=== PATIENT | female | born 2000 | race Caucasian/White ===

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

== ENCOUNTER 2022-01-22 13:21 | Emergency (ER) | payer SELFPAY ==
[2022-01-22 13:25] VITALS: BP 124/74; PULSE 107; RESP 16; TEMP 37.1; O2SAT 99; BMI 24.4
--- NOTE | 2022-01-22 13:39 | HMH.EDGENADL ---
ED Disposition Clinical Impression: Miscarriage Disposition: Home, Self-Care Condition on Discharge: Good Additional Instructions: Follow-up with primary care provider, call for appointment. Referrals: Sherman Beck MD [Primary Care Provider] - - Critical Care Critical Care Time: No Attestation: On 01/22/22, the high probability of a clinically significant, sudden or life threatening deterioration of the following system(s) required my full and direct attention, intervention and personal management. The time I documented below is in addition to time spent performing reported procedures but includes the following listed in this critical care notation. Medical Decision Making - Nadir Inquiry Pt receiving controlled substance: No Vital Signs: 01/22/22 13:25 Temperature 98.8 F Temperature Source Oral Pulse Rate [Right Radial] 107 H Respiratory Rate 16 Blood Pressure [Right Arm] 124/74 Blood Pressure Mean [Right Arm] 90 Blood Pressure Source [Right Arm] Automatic Cuff Blood Pressure Position [Right Arm] Sitting 02 Sat by Pulse Oximetry 99 Oxygen Delivery Method Room Air - Lab Data Lab Results 01/22/22 13:30: Urine HCG, Qual Negative Medical Decision Narrative: Suspect that she had a miscarriage of a very early . General Adult HPI - General Chief complaint: Vaginal Bleeding Stated complaint: possible miscarriage Time Seen by Provider: 01/22/22 13:40 Mode of Arrival: Ambulatory Limitations: No Limitations Description of Symptoms (Recalled from ER Triage Doc. by RN): Pt reports concern for miscarriage. Pt reports on 01/10/22 she took 4 home tests- all were positive. Pt reports 2 days ago she had brown/black color vaginal spotting. Pt reports the spotting has now stopped. Pt denies any vaginal/pelvic or abd pain. - History of Present Illness HPI narrative: States that she had some vaginal spotting from January 07 through January 10. She took 4 home tests on January 10 and all were positive. She says that the spotting resolved and has not returned since January 10. She says that she took another test today and says that it was negative, therefore she is concerned that she might have had a miscarriage. No prior pregnancies. No pain. No current bleeding. Last normal menstrual period was December 08. - Related Data Previous Rx's Medication Instructions Recorded Brompheniramine/Pseudoephed/Dm 5 - 10 ml PO Q46H PRN #150 ml 12/19/20 [Bromfed Dm Cough Syrup] Fluticasone Propionate [Flonase 1 spr NS DAILY #1 bottle 12/19/20 50mcg nasal spray 16gm] cephALEXin [cephALEXin 500mg 500 mg PO BID 10 Days #20 cap 12/19/20 capsule*] Allergies Allergy/AdvReac Type Severity Reaction Status Date / Time No Known Allergies Allergy Verified 05/09/19 11:14 [facility] History - Hepatitis A Screen Attestation statement:: This patient has been screened for Hepatitis A risk factors. I have reviewed the patient's past medical history: Yes Medical History: Reports:: Depression Denies:: Cancer, Diabetes Mellitus Type 1, Diabetes Mellitus Type 2, MRSA Other Surgeries: Yes: No Previous Surgery Amputation: No Fractures: No - Social History Smoking Status: Never smoker Alcohol Intake: never Substance Use Type: denies use Occupational Status: student - Psychiatric History Pschychiatric History:: Reports:: Depression, Psychiatric Treatment Family Hx:: No significant family history Comment: Family history is positive for depression grandmother from heroin over dose. ROS Obtained: Yes Systems reviewed as appropriate & no additional complaints - Gastrointestinal Gastrointestingal: Denies: abdominal pain - Genitourinary Female Genitourinary: Reports abnormal vaginal bleeding Physical Exam - General General appearance: alert, in no apparent distress - Head Head exam: atraumatic, normocephalic - Eye Eye exam: Present: normal appearance, EOMI - ENT ENT
[2022-01-22 13:51] LABS: Urine Pregnancy, HCG Qual. Negative (Negative)
[2022-01-22 14:05] VITALS: BP 124/74; PULSE 107; RESP 16; TEMP 37.1; O2SAT 99
== END 2022-01-22 14:06 | disposition home or self-care (01) ==
PROVIDERS: Emergency Provider Emergency Medicine; PCP Emergency Medicine
DX: O03.9 Complete or unspecified spontaneous abortion without complication (principal)
CPT/HCPCS: 81025; 99283

== ENCOUNTER 2022-04-28 15:49 | Emergency (ER) | payer SELFPAY ==
[2022-04-28 15:59] VITALS: BP 128/73; PULSE 87; RESP 16; TEMP 36.8; O2SAT 98; BMI 26.4
--- NOTE | 2022-04-28 16:05 | PC.NURSE ---
pt in triage room until room is available in ER, pt verbalized understanding.
[2022-04-28 16:17] LABS: Appearance,Urine CLOUDY (Clear); Blood, Urine 3+ (Negative); Color,Urine ORANGE (Yellow); Glucose,Urine (UA) Negative (Negative); Ketones,Urine Negative (Negative); Leukocyte Esterase,Urine Negative (Negative); Microscopic, Urine URINE MICROSCOPIC (MICROSCOPIC); Nitrate,Urine Negative (Negative); PH,Urine 5.5 (5.0-8.5); Protein,Urine TRACE (Negative); Specific Gravity, Urine >= 1.030 (1.005-1.030); Urobilinogen,Urine 0.2 EU/dl (0.2)
[2022-04-28 16:21] LABS: Urine Pregnancy, HCG Qual. Positive (Negative)
[2022-04-28 16:46] LABS: Bilirubin,Urine 1+ (Negative)
[2022-04-28 16:47] LABS: Bacteria,Urine Trace /lpf; RBC,Urine TNTC #/hpf (0-3); WBC,Urine Occasional #/hpf (0-3)
--- NOTE | 2022-04-28 16:55 | PC.NURSE ---
contacted lab to draw blood on pt.
[2022-04-28 17:10] LABS: Basophils # 0.1 K/mm3 (0-0.2); Basophils % 0.8 % (0.1-2.0); Eosinophils # 0.1 K/mm3 (0.0-0.4); Eosinophils % 1.6 % (0.1-12.0); Hematocrit 39.6 % (37.0-47.0); Hemoglobin 12.7 g/dL (12.2-16.2); Lymphocytes # 1.9 K/mm3 (0.7-4.5); Lymphocytes % 28.1 % (10-50); Mean Corpuscular HGB Conc 32.1 g/dL (31.8-35.4); Mean Corpuscular Hemoglobin 31.8 pg (27.0-31.2); Mean Corpuscular Volume 99.2 fl (81-99); Mean Platelet Volume 7.8 fl (7.4-10.4); Monocytes # 0.4 K/mm3 (0.1-1.0); Monocytes % 5.9 % (1.7-9.3); Neutrophils # 4.3 K/mm3 (1.8-7.8); Neutrophils % 63.5 % (37.0-80.0); Platelet Count 372 K/mm3 (142-424); Red Blood Count 3.99 M/mm3 (4.20-5.40); Red Cell Distribution Width 12.5 % (11.5-17.5); White Blood Count 6.8 K/mm3 (4.5-13.0)
--- NOTE | 2022-04-28 17:27 | US_ITS ---
PROCEDURE INFORMATION: Exam: US , Transvaginal Exam date and time: 04/28/2022 5:47 PM Age: 21 years old Clinical indication: Lmp or gestational age (in weeks): 6 w 3 d; Antepartum complications; Bleeding; ; Patient HX: Hcg quant is 659; Additional info: Vaginal bleeding, early TECHNIQUE: Imaging protocol: Real-time transvaginal obstetrical ultrasound of the maternal pelvis with image documentation. Transvaginal imaging was used for better evaluation of the fetus, adnexa, and/or cervix. COMPARISON: No relevant prior studies available. FINDINGS: Gestation: No evidence for an intrauterine gestational sac. No adnexal masses. MATERNAL: Uterus: The uterus measures 7.1 x 3.1 x 3.3 cm. The endometrium is normal, measuring approximately 6.9 mm. No myometrial masses. Right ovary/adnexa: The right ovary appears normal, measuring 2.8 x 2.4 x 2.0 cm. No adnexal masses. No free fluid. Left ovary/adnexa: The left ovary appears normal, measuring 2.2 x 1.8 x 1.3 cm. Vasculature: Duplex assessment demonstrates normal flow in both ovaries. IMPRESSION: 1. No evidence for an intrauterine gestational sac. 2. Normal appearance to the uterus and ovaries. Recommend correlation with serial beta HCG levels.
--- NOTE | 2022-04-28 17:29 | PC.NURSE ---
ER MD gave verbal order for transvaginal ultrasound. updated pt on POC at this time. radiology notified of ultrasound order.
[2022-04-28 17:33] VITALS: BP 113/72; PULSE 78; RESP 16
--- NOTE | 2022-04-28 17:35 | PC.NURSE ---
pt to restroom at this time
[2022-04-28 17:39] LABS: HCG,Quantitative 659 mIU/ml (0-5.42)
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
[2022-04-28 19:21] VITALS: BP 121/76; PULSE 79; RESP 18; TEMP 36.8; O2SAT 99
== END 2022-04-28 19:23 | disposition home or self-care (01) ==
PROVIDERS: Emergency Provider Emergency Medicine
DX: O20.9 Hemorrhage in early pregnancy, unspecified (principal); Z3A.00 Weeks of gestation of pregnancy not specified
CPT/HCPCS: 36415; 76817; 81001; 81025; 84702; 85025; 86900; 86901; 99284

== ENCOUNTER → 2022-05-01 11:31 | Outpatient (CLI) | payer SELFPAY ==
[2022-05-01 13:05] LABS: HCG,Quantitative 75 mIU/ml (0-5.42)
== END ==
PROVIDERS: Visit Provider Emergency Medicine
DX: O20.9 Hemorrhage in early pregnancy, unspecified (principal)
CPT/HCPCS: 36415; 84702

== ENCOUNTER 2022-08-09 12:57 | Emergency (ER) | payer OTHER, SELFPAY ==
[2022-08-09 12:59] VITALS: BP 132/72; PULSE 118; RESP 18; TEMP 37.1; O2SAT 98; BMI 27.3
--- NOTE | 2022-08-09 13:14 | PC.NURSE ---
lab contacted to draw blood on pt.
--- NOTE | 2022-08-09 13:27 | PC.NURSE ---
Phlebotomy is at [facility]
[2022-08-09 13:56] LABS: HCG Qualitative, Serum Positive (Negative)
[2022-08-09 14:09] LABS: HCG,Quantitative 1278 mIU/ml (0-5.42)
[2022-08-09 14:50] VITALS: BP 100/63; PULSE 73; RESP 16; TEMP 37.1; O2SAT 98
--- NOTE | 2022-08-09 14:50 | HMH.EDGENADL ---
Discharge Plan Disposition Patient Disposition: Home, Self-Care Condition: Good Prescriptions Prescriptions: No Action cephalexin 500 MG capsule 500 mg PO BID 10 Days Qty: 20 0RF etbzmtbbpowxwtx-vbamteigr-UL 118 ML syrup 5 - 10 ml PO Q46H PRN (Reason: Cough) Qty: 150 0RF fluticasone propionate 120 SPR/BOT bottle 1 spr NS DAILY Qty: 1 0RF Rx Instructions: each nostril daily Referrals Follow up/Referrals: Provider,Referral, MD [Primary Care Provider] - See instructions Activity Restrictions/Add. Instructions Additional Instructions/Restrictions: Please follow-up with primary care physician within the next 1 to 2 days, you have been provided a list of primary care physicians please call today to set up appointment. Your hCG level during ED admission is 1200 will need repeat labs to continue to trend. Please return to the emergency department for any vaginal bleeding, abdominal pain or any other concerns. Clinical Impressions Clinical Impression: Print Language Print Language: Upper Sorbian Discharge ED Provider: Saba Salomon Adult HPI General Chief complaint: Recheck/Abnormal Lab/Rx Stated complaint: possibly , make sure ok Time Seen by Provider: 08/09/22 12:57 Mode of Arrival: Ambulatory Source of Information: Patient Limitations: No Limitations Description of Symptoms (Recalled from ER Triage Doc. by RN): Pt requesting confirmation. Reports positive test on of last week, pt reports LMP jul 06. Pt denies any vaginal bleeding or cramping. History of Present Illness HPI narrative: Christina is a 22 yo female presenting to the ED for confirmation. Patient reports she had miscarriage a few weeks prior but multiple negative tests following that. However on last week she had pos test and believes she may be . Last LMP Jul 06. She denies any vaginal bleeding, discharge. No abdominal cramping. No N/V. No feveres or other infectious symptoms. complaint: confirmation Related Data Previous Rx's Medication Instructions Recorded pzmydjnkcixbofi-xdocvmsrwvimtel-AP 5 - 10 ml PO Q46H PRN Cough #150 mL 12/19/20 2 mg-30 mg-10 mg/5 mL oral syrup cephalexin 500 mg capsule 500 mg PO BID 10 days #20 caps 12/19/20 fluticasone propionate 50 1 spr NS DAILY ##1 12/19/20 mcg/actuation nasal spray,suspension Allergies Allergy/AdvReac Type Severity Reaction Status Date / Time No Known Allergies Allergy Verified 05/09/19 11:14 [facility] Disclaimer: The information contained in this section may have been updated after the patient was seen, as this information can be updated by other users. Social History Smoking Status: Never smoker alcohol intake: never substance use type: denies use current occupational status: student Travel in the last 8 weeks: None number of children: 0 ROS Obtained: Yes All systems reviewed & no additional complaints except as documented Physical Exam General General appearance: alert and in no apparent distress Head Head exam: atraumatic and normal inspection Eye Eye exam: Present normal appearance and EOMI ENT ENT exam: Present normal exam, normal oropharynx and mucous membranes moist Neck Neck exam: Present normal inspection and full ROM Chest Chest inspection: Present normal inspection and symmetric chest wall rise Respiratory Respiratory exam: Present normal lung sounds bilaterally Cardiovascular Cardiovascular exam: Present regular rate and normal heart sounds Abdominal Exam Abdominal exam: Present soft and normal bowel sounds Extremities Exam Extremities exam: Present normal inspection and full ROM Back Exam Back exam: Present normal inspection and full ROM Neurological Exam Neurological exam: Present alert and oriented X3 Psychiatric Psychiatric exam: Present normal affect Skin Skin exam: Presen
== END 2022-08-09 14:50 | disposition home or self-care (01) ==
PROVIDERS: Emergency Provider Student in an Organized Health Care Education/Training Program
DX: Z32.01 Encounter for pregnancy test, result positive
CPT/HCPCS: 84702; 84703; 99282

== ENCOUNTER 2022-08-11 17:30 | Emergency (ER) | payer OTHER, SELFPAY ==
--- NOTE | 2022-08-11 17:40 | PC.NURSE ---
pt deciding to leave without being seen. pt reports she was just wanting to check her hcg but states she will get it checked at her OB appointment on tuesday.
[2022-08-11 18:47] VITALS: BP 0/0; PULSE 0; RESP 0; TEMP -17.7; TEMP 0; O2SAT 0
== END 2022-08-11 19:10 | disposition left against medical advice (07) ==
LOC: ER 18:49
PROVIDERS: Emergency Provider Student in an Organized Health Care Education/Training Program
DX: Z53.21 Procedure and treatment not carried out due to patient leaving prior to being seen by health care provider (principal)

== ENCOUNTER 2022-08-28 23:26 | Emergency (ER) | payer OTHER, SELFPAY ==
[2022-08-28 23:43] VITALS: BMI 21.4
[2022-08-28 23:44] VITALS: BP 144/79; PULSE 87; RESP 18; TEMP 36.7; O2SAT 98; BMI 25.4
--- NOTE | 2022-08-28 23:45 | HMH.EDGENADL ---
Discharge Plan Disposition Patient Disposition: Home, Self-Care Condition: Good Prescriptions Prescriptions: New ondansetron 4 mg tablet,disintegrating 4 mg PO Q8H PRN (Reason: nausea and vomiting) 4 Days Qty: 10 0RF nitrofurantoin monohyd/m-cryst [Macrobid] 100 mg capsule 100 mg PO BID 5 Days Qty: 10 0RF Rx Instructions: must administer with a meal/food No Action cephalexin 500 MG capsule 500 mg PO BID 10 Days Qty: 20 0RF dyphjungqrozefv-fvpjlpqww-KA 118 ML syrup 5 - 10 ml PO Q46H PRN (Reason: Cough) Qty: 150 0RF fluticasone propionate 120 SPR/BOT bottle 1 spr NS DAILY Qty: 1 0RF Rx Instructions: each nostril daily Referrals Follow up/Referrals: Provider,Referral, MD [Primary Care Provider] - See instructions Activity Restrictions/Add. Instructions Additional Instructions/Restrictions: Medication as directed. Follow-up PCP in 1 to 2 days. Return to ER if not tolerating p.o. hydration Clinical Impressions Clinical Impression: Asymptomatic bacteriuria during Qualifiers: Weeks of gestation: less than 8 weeks Qualified Code(s): Z3A.01 - Less than 8 weeks gestation of Instructions Patient Instructions: DI for Diarrhea and Traveler's Diarrhea -- Adult, DI for Diarrhea and Traveler's Diarrhea -- Child, DI for Nausea -- Adult, DI for Nausea -- Child Discharge ED Provider: Dell Shen General Adult HPI General Chief complaint: Nausea/Vomiting/Diarrhea Stated complaint: vomiting, Dont know how far along she is Time Seen by Provider: 08/28/22 23:41 Mode of Arrival: Ambulatory Source of Information: Patient Limitations: No Limitations History of Present Illness HPI narrative: 22yo F presents to the emergency department for confirmation and nausea and vomiting. Reports she is a G2, P0. First miscarriage was about 5 weeks. Has not seen a PCP. Reports her nausea and vomiting has been ongoing for 5 days. Has not sought care until this time. Denies fever. Related Data Previous Rx's Medication Instructions Recorded bjfgojqzctzzepm-diuoeynnmtfzqxw-PW 5 - 10 ml PO Q46H PRN Cough #150 mL 12/19/20 2 mg-30 mg-10 mg/5 mL oral syrup cephalexin 500 mg capsule 500 mg PO BID 10 days #20 caps 12/19/20 fluticasone propionate 50 1 spr NS DAILY ##1 12/19/20 mcg/actuation nasal spray,suspension nitrofurantoin 100 mg PO BID 5 days #10 caps 08/29/22 monohydrate/macrocrystals 100 mg capsule (Macrobid) ondansetron 4 mg disintegrating 4 mg PO Q8H PRN nausea and 08/29/22 tablet vomiting 4 days #10 tabs Allergies Allergy/AdvReac Type Severity Reaction Status Date / Time No Known Allergies Allergy Verified 05/09/19 11:14 [facility] Disclaimer: The information contained in this section may have been updated after the patient was seen, as this information can be updated by other users. Social History Smoking Status: Current every day smoker alcohol intake: never substance use type: denies use current occupational status: student Travel in the last 8 weeks: None number of children: 0 ROS Obtained: Yes Systems reviewed as appropriate & no additional complaints except as documented Physical Exam General General appearance: alert and in no apparent distress Head Head exam: atraumatic Eye Eye exam: Present normal appearance Chest Chest inspection: Present normal inspection and symmetric chest wall rise Respiratory Respiratory exam: Present normal lung sounds bilaterally; Absent accessory muscle use Cardiovascular Cardiovascular exam: Present regular rate (96), normal rhythm and normal heart sounds Abdominal Exam Abdominal exam: Present normal bowel sounds Neurological Exam Neurological exam: Present alert, oriented X3 and CN II-XII intact Psychiatric Psychiatric exam: Present normal affect Skin Skin exam: Present warm and dry Medical Decision Lissette
[2022-08-28 23:47] LABS: Appearance,Urine SL CLOUDY (Clear); Blood, Urine 2+ (Negative); Color,Urine YELLOW (Yellow); Glucose,Urine (UA) Negative (Negative); Ketones,Urine 2+ (Negative); Leukocyte Esterase,Urine Negative (Negative); Microscopic, Urine URINE MICROSCOPIC (MICROSCOPIC); Nitrate,Urine Negative (Negative); PH,Urine 5.5 (5.0-8.5); Protein,Urine 1+ (Negative); Specific Gravity, Urine >= 1.030 (1.005-1.030)
[2022-08-28 23:51] LABS: Bilirubin,Urine 2+ (Negative)
[2022-08-28 23:52] LABS: Urine Pregnancy, HCG Qual. Positive (Negative)
[2022-08-28 23:55] LABS: WBC,Urine Occasional #/hpf (0-3)
[2022-08-28 23:56] LABS: Bacteria,Urine Trace /lpf
[2022-08-29 00:43] VITALS: BP 130/78; PULSE 85; RESP 16; TEMP 36.6; O2SAT 99
== END 2022-08-29 00:48 | disposition home or self-care (01) ==
PROVIDERS: Emergency Provider Family Medicine
DX: O23.41 Unspecified infection of urinary tract in pregnancy, first trimester (principal); O21.9 Vomiting of pregnancy, unspecified; O99.611 Diseases of the digestive system complicating pregnancy, first trimester; O99.341 Other mental disorders complicating pregnancy, first trimester; F32.A Depression, unspecified; O99.331 Smoking (tobacco) complicating pregnancy, first trimester; F17.210 Nicotine dependence, cigarettes, uncomplicated; O26.899 Other specified pregnancy related conditions, unspecified trimester; M26.609 Unspecified temporomandibular joint disorder, unspecified side; O99.511 Diseases of the respiratory system complicating pregnancy, first trimester; R05.9 Cough, unspecified; Z79.51 Long term (current) use of inhaled steroids; Z79.899 Other long term (current) drug therapy; Z3A.01 Less than 8 weeks gestation of pregnancy
CPT/HCPCS: 81001; 81025; 99283

== ENCOUNTER → 2022-09-07 10:33 | Outpatient (CLI) | payer OTHER, SELFPAY ==
[2022-09-07 11:23] LABS: Basophils % 0.5 % (0.1-2.0); Eosinophils # 0.1 K/mm3 (0.0-0.4); Eosinophils % 0.8 % (0.1-12.0); Hemoglobin 12.3 g/dL (12.2-16.2); Lymphocytes # 1.9 K/mm3 (0.7-4.5); Lymphocytes % 22.5 % (10-50); Mean Corpuscular HGB Conc 32.4 g/dL (31.8-35.4); Mean Corpuscular Hemoglobin 31.6 pg (27.0-31.2); Mean Corpuscular Volume 97.5 fl (81-99); Mean Platelet Volume 7.9 fl (7.4-10.4); Monocytes # 0.3 K/mm3 (0.1-1.0); Monocytes % 4.1 % (1.7-9.3); Neutrophils # 5.9 K/mm3 (1.8-7.8); Neutrophils % 72.1 % (37.0-80.0); Platelet Count 293 K/mm3 (142-424); Red Cell Distribution Width 12.4 % (11.5-17.5); White Blood Count 8.2 K/mm3 (4.5-13.0)
[2022-09-08 13:33] LABS: Rapid Plasma Reagin Ab Titer Non Reactive (NonRea<1:1)
[2022-09-10 06:31] LABS: Neisseria gonorrhoeae, NAA Negative (Negative)
[2022-09-15 23:02] LABS: HIV Screen 4th Generation wRfx NON REACTIVE; Hepatitis B Surface Antigen NEGATIVE; Hepatitis C Antibody <0.1; Progesterone 16.3
== END ==
PROVIDERS: Visit Provider Obstetrics & Gynecology
DX: Z34.90 Encounter for supervision of normal pregnancy, unspecified, unspecified trimester (principal)
CPT/HCPCS: 36415; 84144; 85025; 86593; 86703; 86762; 86850; 87086; 87340; 87380; 87491; 87591; G0432

== ENCOUNTER → 2022-11-25 12:57 | Outpatient (CLI) | payer OTHER, SELFPAY ==
--- NOTE | 2022-11-25 13:06 | US_ITS ---
FINAL REPORT CLINICAL HISTORY: 20 week anatomy scan please use anatomy scan template FINDINGS: There is a single live intrauterine gestation. Presentation is breech. The cervix is closed and measures 2.0 cm. Placenta is posterior grade 1. movement is noted. Amniotic fluid is within normal limits. heart rate is 135 beats per minute. No gross anomaly is identified. MEASUREMENTS: ULTRASOUND AGE: 20 weeks 1 day. GESTATION AGE: 20 weeks 2 days. ESTIMATED WEIGHT: 327 g GROWTH PERCENTILE: 31 % BPD: 4.79 cm corresponding to 20 weeks 4 days. OFD: 4.68 cm corresponding to 20 weeks 2 days. HC: 16.69 cm corresponding to 19 weeks 3 days. AC: 15.07 cm corresponding to 20 weeks 3 days. FL: 3.15 cm corresponding to 19 weeks 6 days. CEREBELLUM: 2.01 cm corresponding to 20 weeks 4 days. HUMERUS: 3.09 cm corresponding to 20 weeks 2 days. HC/AC: 1.11 CI: 83% FL/BPD: 66% FL/AC: 21% IMPRESSION: Single living IUP with an ultrasound age of 20 weeks 1 day. Reviewed, Interpreted and Dictated by Ronal Palmer MD Transcribed by Echo Kenyon Authenticated and [facility]
== END ==
PROVIDERS: PCP Obstetrics & Gynecology; Visit Provider Obstetrics & Gynecology
DX: Z34.90 Encounter for supervision of normal pregnancy, unspecified, unspecified trimester (principal); Z3A.20 20 weeks gestation of pregnancy
CPT/HCPCS: 76811

== ENCOUNTER 2022-12-02 08:48 | Outpatient (CLI) | payer OTHER, SELFPAY ==
[2022-12-02 08:57] VITALS: BMI 23.0
[2022-12-02 09:04] VITALS: BP 119/73; PULSE 100; RESP 16; TEMP 36.9; O2SAT 100
[2022-12-02 09:08] LABS: Microscopic, Urine URINE MICROSCOPIC (MICROSCOPIC)
[2022-12-02 09:13] LABS: Appearance,Urine CLEAR (Clear); Bilirubin,Urine Negative (Negative); Blood, Urine Negative (Negative); Color,Urine YELLOW (Yellow); Glucose,Urine (UA) Negative (Negative); Ketones,Urine Negative (Negative); Leukocyte Esterase,Urine Negative (Negative); Nitrate,Urine Negative (Negative); Protein,Urine Negative (Negative); Specific Gravity, Urine <= 1.005 (1.005-1.030); Urobilinogen,Urine 0.2 EU/dl (0.2)
[2022-12-02 09:26] LABS: Amphetamine/Metha Screen,Urine Negative ng/ml (<1000)
[2022-12-02 09:27] LABS: Barbiturates Screen,Urine Negative ng/ml (<200); Benzodiazepines Screen,Urine Negative ng/ml (<200)
[2022-12-02 09:28] LABS: Cannabinoid Screen,Urine Positive ng/ml (<50)
[2022-12-02 09:29] LABS: Cocaine Screen,Urine Negative ng/ml (<300); Methadone Screen,Urine Negative ng/ml (<300)
[2022-12-02 09:30] LABS: Opiate Screen,Urine Negative ng/ml (<300); Phencyclidine Screen,Urine Negative ng/ml (<25); Squamous Epithelial Cell,Urine Occasional #/hpf (0-5)
[2022-12-02 09:54] VITALS: BMI 23.0
== END 2022-12-02 10:35 | disposition home or self-care (01) ==
LOC: OBOUT 08:49 → OB 08:50
PROVIDERS: Obstetrics & Gynecology; Visit Provider Obstetrics & Gynecology
DX: O26.892 Other specified pregnancy related conditions, second trimester (principal); Z3A.21 21 weeks gestation of pregnancy; R10.32 Left lower quadrant pain
CPT/HCPCS: 80305; 81001

== ENCOUNTER 2023-01-08 12:00 | Emergency (ER) | payer OTHER, SELFPAY ==
[2023-01-08 12:13] VITALS: BP 117/69; PULSE 111; RESP 16; TEMP 36.4; O2SAT 99; BMI 24.4
[2023-01-08 12:30] VITALS: PULSE 109; O2SAT 97
[2023-01-08 12:39] LABS: Basophils % 0.3 % (0.1-2.0); Eosinophils # 0.1 K/mm3 (0.0-0.4); Eosinophils % 1.2 % (0.1-12.0); Hematocrit 36.3 % (37.0-47.0); Hemoglobin 12.3 g/dL (12.2-16.2); Lymphocytes # 1.5 K/mm3 (0.7-4.5); Lymphocytes % 13.3 % (10-50); Mean Corpuscular HGB Conc 33.8 g/dL (31.8-35.4); Mean Corpuscular Hemoglobin 32.3 pg (27.0-31.2); Mean Corpuscular Volume 95.4 fl (81-99); Mean Platelet Volume 7.7 fl (7.4-10.4); Monocytes # 0.5 K/mm3 (0.1-1.0); Monocytes % 4.4 % (1.7-9.3); Neutrophils # 9.1 K/mm3 (1.8-7.8); Neutrophils % 80.8 % (37.0-80.0); Platelet Count 359 K/mm3 (142-424); Red Cell Distribution Width 12.1 % (11.5-17.5); White Blood Count 11.3 K/mm3 (4.5-13.0)
--- NOTE | 2023-01-08 12:41 | HMH.EDGENADL ---
Discharge Plan Disposition Patient Disposition: Home, Self-Care Condition: Good Prescriptions Prescriptions: No Action ondansetron 4 mg tablet,disintegrating 4 mg PO Q8H PRN (Reason: Nausea) Referrals Follow up/Referrals: Provider,Referral, [Primary Care Provider] - See instructions Activity Restrictions/Add. Instructions Additional Instructions/Restrictions: You were evaluated in the emergency department today for muscle cramps. Take Tylenol at home as needed for pain. Make sure that you orally hydrate. Follow-up with your primary care provider and OB. Return to the emergency department for new or worsening symptoms. Clinical Impressions Clinical Impression: Exercise-induced leg cramps Stand Alone Forms Stand Alone Forms: Work/School Release Instructions Patient Instructions: DI for Calf Muscle Strain, DI for Muscle Spasm Discharge ED Provider: Janis Melton General Adult HPI General Chief complaint: PAIN Stated complaint: leg cramps Time Seen by Provider: 01/08/23 12:19 Mode of Arrival: Ambulatory Source of Information: Patient and Significant Other Limitations: No Limitations Description of Symptoms (Recalled from ER Triage Doc. by RN): Presents via POV d/t consistent cramps to bilateral LE for the past couple of weeks. Increase in ambulation due to no vehicle. Occupation at [employer]. +24 wks preg. OB, Dr. Omalley. Denies complaints. History of Present Illness HPI narrative: This patient is a 22-year-old female who is estimated 24 weeks presenting to the emergency department for evaluation with concern for cramping in her bilateral legs. She states that this has been going on intermittently for approximately 2 weeks. She has been walking a lot more because she does not have a car. She states that she feels that she is staying hydrated and has been eating plenty. She denies any other concerns. No history of blood clots or clotting disorders. Related Data Home Medications Medication Instructions Recorded Confirmed ondansetron 4 mg disintegrating 4 mg PO Q8H PRN Nausea 01/08/23 01/08/23 tablet Allergies Allergy/AdvReac Type Severity Reaction Status Date / Time No Known Allergies Allergy Verified 12/30/22 13:10 [facility] Disclaimer: The information contained in this section may have been updated after the patient was seen, as this information can be updated by other users. Medical History Concussion without loss of consciousness Depression Overdose of trazodone Suicide attempt TMJ (sprain of temporomandibular joint) Family History Other Asthma Cancer Stroke Social History Smoking Status: Current every day smoker tobacco type: e-cigarettes alcohol intake: never substance use type: denies use current occupational status: unemployed Travel in the last 8 weeks: None number of children: 0 ROS Obtained: Yes All systems reviewed & no additional complaints except as documented 14 point review of systems obtained and negative except as mentioned in HPI. Physical Exam General General appearance: alert and in no apparent distress Head Head exam: atraumatic and normocephalic Eye Eye exam: Present normal appearance, PERRL and EOMI ENT ENT exam: Present normal exam and normal oropharynx Neck Neck exam: Present normal inspection and full ROM Chest Chest inspection: Present normal inspection and symmetric chest wall rise Respiratory Respiratory exam: Present normal lung sounds bilaterally; Absent respiratory distress or wheezes Cardiovascular Cardiovascular exam: Present regular rate and normal rhythm Abdominal Exam Abdominal exam: Present soft; Absent distention, tenderness or guarding Extremities Exam Extremities exam: Present normal inspection and full ROM; Absent tenderness or
[2023-01-08 12:43] LABS: Chloride 102 mmol/L (98-107)
[2023-01-08 12:44] LABS: Potassium 3.7 mmoL/L (3.5-5.1); Sodium 137 mmol/L (136-145)
[2023-01-08 12:46] LABS: Alanine Aminotransferase 17 U/L (12-78); Albumin Level 3.5 g/dl (3.5-5.0); Albumin/Globulin Ratio 1.3 (1.1-1.8); Alkaline Phosphatase 53 U/L (38-126); Anion Gap 13.7 mEq/L (5-15); Aspartate Amino Transferase 26 U/L (14-36); Bilirubin,Total 0.3 mg/dl (0.2-1.3); Blood Urea Nitrogen 5 mg/dl (7-17); Calcium 8.4 mg/dl (8.4-10.2); Carbon Dioxide 25 mmol/L (22.0-30.0); Creatine Kinase 38 U/L (30-135); Creatinine Clearance Estimated 201 mL/min (50-200); Estimated Glomerular Filt Rate 203 ml/min (>60); GFR (African American) 246 ML/MIN (>60); Globulin 2.7 g/dL (1.3-3.2); Glucose 89 mg/dl (74-100); Total Protein,Serum 6.2 g/dl (6.3-8.2)
[2023-01-08 12:47] LABS: Magnesium 1.6 mg/dl (1.6-2.3)
[2023-01-08 13:00] VITALS: PULSE 81; O2SAT 97
[2023-01-08 13:44] VITALS: BP 117/69; PULSE 87; RESP 17; TEMP 36.5; O2SAT 97
== END 2023-01-08 13:46 | disposition home or self-care (01) ==
PROVIDERS: Emergency Provider Emergency Medicine
DX: O26.892 Other specified pregnancy related conditions, second trimester (principal); R25.2 Cramp and spasm; F17.290 Nicotine dependence, other tobacco product, uncomplicated; Z3A.10 10 weeks gestation of pregnancy; O99.332 Smoking (tobacco) complicating pregnancy, second trimester
CPT/HCPCS: 80053; 82550; 83735; 85025; 96360; 99284; 99285

== ENCOUNTER 2023-01-10 16:10 | Emergency (ER) | payer OTHER, SELFPAY ==
[2023-01-10 16:45] VITALS: BP 103/70; PULSE 101; RESP 18; TEMP 36.8; O2SAT 100; BMI 25.4
[2023-01-10 17:09] LABS: UTC Strep Screen (Rapid) Negative (Negative)
--- NOTE | 2023-01-10 17:26 | EXP.UTC ---
Discharge Plan Disposition Patient Disposition: Home, Self-Care Condition: Good Prescriptions Prescriptions: New amoxicillin 500 mg capsule 500 mg PO BID 10 Days Qty: 20 0RF Referrals Follow up/Referrals: Provider,Referral, MD [Primary Care Provider] - See instructions Activity Restrictions/Add. Instructions Additional Instructions/Restrictions: *Monitor Temp, Over the counter Motrin or Tylenol as directed/as needed Tylenol every 4 hours and Motrin every 6 hours (as long as your family doctor has told you that you can take it) for fever or pain. and straight to ER if unable to lower temp less than 101.0 after medication given *Warm salt water gargles may help to soothe the throat *Throat Lozenges? *Warm fluids like tea with honey may help to soothe the throat? *Sleep elevated *Humidifier/Vaporizer Your throat swab was sent for culture. Those results are typically sent to your primary care. Be sure to follow up in 2-3 days with your family doctor/primary care physician if no improvement so they can review those result and treat if necessary. If you don?t have a primary care doctor, I recommend you get one but in the mean time, you will have to return to a walk in clinic Follow up IMMEDIATELY for new or worsening symptoms or no Noticeable improvement over the next 48-72 hours. 911 for difficulty breathing or swallowing Clinical Impressions Clinical Impression: Pharyngitis Stand Alone Forms Stand Alone Forms: Work/School Release Instructions Patient Instructions: Sore Throat, Amoxicillin Discharge ED Provider: [facility] General Stated complaint: Sore throat, Cough FUENTES Mode of Arrival: Ambulatory Source of Information: Patient Limitations: No Limitations Time Seen by Provider: 01/10/23 17:26 Description of Symptoms (Recalled from Triage Doc. by RN): PATIENT C/O SORE THROAT WITH REDNESS SINCE YESTERDAY HEENT Symptoms (Recalled from RN notes): Yes Resp Symptoms (Recalled from RN notes): No Skin Symptoms (Recalled from RN notes): No MS Symptoms (Recalled from RN notes): No Functional Status (Recalled from RN notes): WNL History of Present Illness Provider Complaint: Patient states that she has been having sore throat since yesterday States that her throat is red swollen and has blisters on her tonsils so she came in to get checked states that she is 6mth OB Related Data Previous Rx's Medication Instructions Recorded amoxicillin 500 mg capsule 500 mg PO BID 10 days #20 caps 01/10/23 Allergies Allergy/AdvReac Type Severity Reaction Status Date / Time No Known Allergies Allergy Verified 12/30/22 13:10 Worker's Comp Is this a Worker's Comp case?: No [facility] Disclaimer: The information contained in this section may have been updated after the patient was seen, as this information can be updated by other users. Medical History Concussion without loss of consciousness Depression Overdose of trazodone Suicide attempt TMJ (sprain of temporomandibular joint) Family History Other Asthma Cancer Stroke Social History Smoking Status: Current every day smoker tobacco type: e-cigarettes alcohol intake: never substance use type: denies use current occupational status: unemployed Travel in the last 8 weeks: None number of children: 0 ROS Obtained: Yes All systems reviewed & no additional complaints except as documented and Yes Systems reviewed as appropriate & no additional complaints except as documented Constitutional Constitutional: Reports system reviewed and no additional complaints, except as documented, Reports as per HPI and Reports fever(s) ENT Ears, Nose, Mouth, and Throat: Reports system reviewed and no additional complaints, except as documented, Reports as per HPI and Rep
[2023-01-10 17:55] LABS: Monoscreen (Rapid) Negative (Negative)
[2023-01-10 18:05] VITALS: BP 103/70; PULSE 101; RESP 18; TEMP 36.8; O2SAT 100
== END 2023-01-10 18:06 | disposition home or self-care (01) ==
PROVIDERS: Emergency Provider Nurse Practitioner
DX: O99.512 Diseases of the respiratory system complicating pregnancy, second trimester (principal); J02.9 Acute pharyngitis, unspecified; F17.290 Nicotine dependence, other tobacco product, uncomplicated; Z3A.24 24 weeks gestation of pregnancy; O99.332 Smoking (tobacco) complicating pregnancy, second trimester
CPT/HCPCS: 86318; 87880; 99212; 99214; G0463

== ENCOUNTER → 2023-01-24 09:51 | Outpatient (CLI) | payer OTHER, SELFPAY ==
[2023-01-24 10:25] LABS: Basophils % 0.4 % (0.1-2.0); Eosinophils # 0.1 K/mm3 (0.0-0.4); Eosinophils % 0.9 % (0.1-12.0); Hematocrit 35.9 % (37.0-47.0); Hemoglobin 11.9 g/dL (12.2-16.2); Lymphocytes % 17.5 % (10-50); Mean Corpuscular HGB Conc 33.2 g/dL (31.8-35.4); Mean Corpuscular Volume 96.5 fl (81-99); Mean Platelet Volume 8.2 fl (7.4-10.4); Monocytes # 0.6 K/mm3 (0.1-1.0); Neutrophils # 8.8 K/mm3 (1.8-7.8); Neutrophils % 76.3 % (37.0-80.0); Platelet Count 378 K/mm3 (142-424); Red Blood Count 3.72 M/mm3 (4.20-5.40); Red Cell Distribution Width 12.2 % (11.5-17.5); White Blood Count 11.6 K/mm3 (4.5-13.0)
[2023-01-24 11:49] LABS: Glucose,Fasting 80 mg/dl (74-100)
[2023-01-24 12:05] LABS: Glucose 1 Hour 105 mg/dL (74-100)
[2023-01-24 12:14] LABS: Amphetamine/Metha Screen,Urine Negative ng/ml (<1000)
[2023-01-24 12:15] LABS: Barbiturates Screen,Urine Negative ng/ml (<200)
[2023-01-24 12:16] LABS: Benzodiazepines Screen,Urine Negative ng/ml (<200); Cannabinoid Screen,Urine Positive ng/ml (<50)
[2023-01-24 12:20] LABS: Cocaine Screen,Urine Negative ng/ml (<300); Methadone Screen,Urine Negative ng/ml (<300)
[2023-01-24 12:21] LABS: Opiate Screen,Urine Negative ng/ml (<300); Phencyclidine Screen,Urine Negative ng/ml (<25)
== END ==
PROVIDERS: Visit Provider Obstetrics & Gynecology
DX: Z34.90 Encounter for supervision of normal pregnancy, unspecified, unspecified trimester (principal)
CPT/HCPCS: 36415; 80305; 82951; 85025

== ENCOUNTER 2023-02-16 10:06 | Outpatient (CLI) | payer OTHER, SELFPAY ==
[2023-02-16 10:20] VITALS: BMI 25.4
[2023-02-16 10:34] LABS: Microscopic, Urine URINE MICROSCOPIC (MICROSCOPIC)
[2023-02-16 10:38] LABS: Appearance,Urine CLEAR (Clear); Bilirubin,Urine Negative (Negative); Blood, Urine Negative (Negative); Color,Urine YELLOW (Yellow); Glucose,Urine (UA) Negative (Negative); Ketones,Urine Negative (Negative); Leukocyte Esterase,Urine Negative (Negative); Nitrate,Urine Negative (Negative); PH,Urine 8.5 (5.0-8.5); Protein,Urine Negative (Negative); Specific Gravity, Urine 1.015 (1.005-1.030); Urobilinogen,Urine 0.2 EU/dl (0.2)
[2023-02-16 10:43] VITALS: BP 113/71; PULSE 87; RESP 18; TEMP 36.7; O2SAT 98; BMI 25.4
[2023-02-16 10:52] LABS: Bacteria,Urine Trace /lpf; Squamous Epithelial Cell,Urine Occasional #/hpf (0-5)
[2023-02-16 11:03] LABS: Amphetamine/Metha Screen,Urine Negative ng/ml (<1000); Barbiturates Screen,Urine Negative ng/ml (<200)
[2023-02-16 11:04] LABS: Benzodiazepines Screen,Urine Negative ng/ml (<200)
[2023-02-16 11:05] LABS: Cannabinoid Screen,Urine Positive ng/ml (<50)
[2023-02-16 11:07] LABS: Cocaine Screen,Urine Negative ng/ml (<300)
[2023-02-16 11:08] LABS: Methadone Screen,Urine Negative ng/ml (<300)
[2023-02-16 11:09] LABS: Opiate Screen,Urine Negative ng/ml (<300); Phencyclidine Screen,Urine Negative ng/ml (<25)
== END 2023-02-16 11:16 | disposition home or self-care (01) ==
LOC: OBOUT 10:08 → OB 10:09
PROVIDERS: Visit Provider Obstetrics & Gynecology
DX: O47.03 False labor before 37 completed weeks of gestation, third trimester (principal); Z3A.32 32 weeks gestation of pregnancy
CPT/HCPCS: 59025; 80305; 81001; G0463

== ENCOUNTER → 2023-02-24 14:29 | Outpatient (CLI) | payer OTHER, SELFPAY ==
--- NOTE | 2023-02-24 14:34 | US_ITS ---
PROCEDURE: US OB BIOPHYSICAL PROFILE CLINICAL INDICATION: US OB BPP/Growth with SD Ratio-SGA COMPARISON: FINDINGS: From her last menstrual period she is 33weeks 2days. Viable fetus in the cephalic presentation with a posterior placenta grade 3. The following parameters are obtained: Average ultrasound age is 32weeks 0 days. Estimated due date by ultrasound is 04/21/2023. Estimated weight is 3 pounds 15 ounces, 1792 grams. 6percentile. heart rate: 135bpm bpm. BPD: 30weeks 6days OFD: 30weeks 6days HC: 32 weeks 1 day AC: 31 weeks 4 days FL: 31 weeks 2 days HC/AC: 1.06 Cephalic index: 0.82 FL/BPD: 0.74 FL/AC: 0.22 Amniotic fluid index: 7.26cm Qualitative AFV: 2 breathing movements: 2 Gross body movements: 2 Tone: 2 Biophysical profile score: 8 Doppler evaluation of the umbilical artery: SD ratio: 2.72 No obvious anomalies evident.Kidney, three-vessel cord appear normal. IMPRESSION: 1. Fetus in the cephalic presentation with a posterior placenta grade 3. 2. The fluid is low with an amniotic fluid index of 7.26 cm. 3. There is asymmetric growth restriction with the AC current late about 2 weeks behind. The growth is 6th percentile. 4. Biophysical profile is 8/8 with good breathing movement seen as well as movement. 5. The physician was notified. 6. Dictated by: Rajat Clemons MD 02/26/2023 10:47 Rajat Clemons MD in OV 02/26/2023 10:47
== END ==
PROVIDERS: Visit Provider Obstetrics & Gynecology
DX: O36.5930 Maternal care for other known or suspected poor fetal growth, third trimester, not applicable or unspecified (principal); Z3A.33 33 weeks gestation of pregnancy
CPT/HCPCS: 76816; 76819; 76820

== ENCOUNTER → 2023-03-01 18:07 | Outpatient (CLI) | payer OTHER, SELFPAY | PROVIDERS: PCP Obstetrics & Gynecology; Visit Provider Obstetrics & Gynecology | DX: O36.5930 Maternal care for other known or suspected poor fetal growth, third trimester, not applicable or unspecified (principal); Z3A.34 34 weeks gestation of pregnancy | CPT/HCPCS: 86403 ==

== ENCOUNTER → 2023-03-14 16:45 | Outpatient (CLI) | payer OTHER, SELFPAY | PROVIDERS: PCP Obstetrics & Gynecology; Visit Provider Obstetrics & Gynecology | DX: Z34.93 Encounter for supervision of normal pregnancy, unspecified, third trimester (principal); Z3A.35 35 weeks gestation of pregnancy | CPT/HCPCS: 86403 ==

== ENCOUNTER → 2023-03-21 15:01 | Outpatient (CLI) | payer OTHER, SELFPAY ==
--- NOTE | 2023-03-21 15:05 | US_ITS ---
PROCEDURE: US OB BIOPHYSICAL PROFILE CLINICAL INDICATION: sga COMPARISON: FINDINGS: Transabdominal sonographic images of the uterus were obtained. From her established due date she is 36weeks 6days. The following parameters are obtained: Viable fetus in the cephalic presentation with a fundal placenta grade 3. Average ultrasound age is 34weeks 5days. Estimated due date by ultrasound is 04/27/2023. Estimated weight is 5lb 2.9oz, 2350 grams. Fifthpercentile. heart rate: 134bpm bpm. BPD: 35weeks 4days OFD: 35weeks 4days HC: 35 weeks 1 day AC: 33 weeks 4 days FL: 34 weeks 3 days HC/AC: 1.06 Cephalic index: 0.8 FL/BPD: 0.76 FL/AC: 0.23 Amniotic fluid index: 6.08cm Qualitative AFV: 0 breathing movements: 2 Gross body movements: 2 Tone: 2 Biophysical profile score: 6 Doppler evaluation of the umbilical artery: SD ratio: 3.16 Resistive index: 0.68 No obvious anomalies evident.Kidneys, bladder, stomach, appear normal. IMPRESSION: 1. Viable fetus in the cephalic presentation with a fundal placenta grade 3. 2. The fluid is low with an amniotic fluid index of 6.08 cm and subjectively the fluid looks low on ultrasound. There is not a 2 cm x 2 cm pocket. 3. Biophysical profile is 6/8 with amniotic fluid low. Good breathing movement is seen. 4. Fetus is globally small measuring approximately 2 weeks behind. The abdominal circumference is 3 weeks behind. Dictated by: Rajat Clemons MD 03/21/2023 16:59 Rajat Clemons MD in [facility] 03/21/2023 16:59
--- NOTE | 2023-03-21 18:01 | PC.NURSE ---
Attempted to call patient x3 for cervidil induction. Also notified DR parks of patient not showing up. MD reports to let him know when she shows up.
== END ==
PROVIDERS: Visit Provider Obstetrics & Gynecology
DX: O36.5990 Maternal care for other known or suspected poor fetal growth, unspecified trimester, not applicable or unspecified (principal)
CPT/HCPCS: 76816; 76819; 76820

== ENCOUNTER 2023-03-21 20:03 | Inpatient (IN) | payer OTHER, SELFPAY ==
[2023-03-21 18:39] VITALS: BMI 27.3
[2023-03-21 19:04] LABS: Coronavirus 19, PCR Not Detected (NotDetected); Influenza A, PCR Not Detected (NotDetected); Influenza B, PCR Not Detected (NotDetected); Microscopic, Urine URINE MICROSCOPIC (MICROSCOPIC)
[2023-03-21 19:08] LABS: Appearance,Urine CLEAR (Clear); Bilirubin,Urine Negative (Negative); Blood, Urine Negative (Negative); Color,Urine YELLOW (Yellow); Glucose,Urine (UA) Negative (Negative); Ketones,Urine Negative (Negative); Leukocyte Esterase,Urine Negative (Negative); Nitrate,Urine Negative (Negative); Protein,Urine Negative (Negative); Specific Gravity, Urine 1.025 (1.005-1.030)
[2023-03-21 19:12] LABS: Basophils # 0.1 K/mm3 (0-0.2); Basophils % 0.4 % (0.1-2.0); Eosinophils # 0.1 K/mm3 (0.0-0.4); Eosinophils % 0.8 % (0.1-12.0); Hemoglobin 11.3 g/dL (12.2-16.2); Lymphocytes # 2.2 K/mm3 (0.7-4.5); Lymphocytes % 17.2 % (10-50); Mean Corpuscular HGB Conc 32.1 g/dL (31.8-35.4); Mean Corpuscular Hemoglobin 29.8 pg (27.0-31.2); Mean Corpuscular Volume 92.7 fl (81-99); Mean Platelet Volume 8.3 fl (7.4-10.4); Monocytes # 0.7 K/mm3 (0.1-1.0); Monocytes % 5.2 % (1.7-9.3); Neutrophils % 76.4 % (37.0-80.0); Platelet Count 487 K/mm3 (142-424); Red Blood Count 3.78 M/mm3 (4.20-5.40)
[2023-03-21 19:22] LABS: Amphetamine/Metha Screen,Urine Negative ng/ml (<1000); Barbiturates Screen,Urine Negative ng/ml (<200)
[2023-03-21 19:24] LABS: Cannabinoid Screen,Urine Positive ng/ml (<50); Cocaine Screen,Urine Negative ng/ml (<300)
[2023-03-21 19:26] VITALS: BP 127/83; PULSE 121; RESP 20; TEMP 36.7; O2SAT 97; BMI 27.3
[2023-03-21 19:26] LABS: Opiate Screen,Urine Negative ng/ml (<300); Phencyclidine Screen,Urine Negative ng/ml (<25)
[2023-03-21 19:34] LABS: Methadone Screen,Urine Negative ng/ml (<300)
[2023-03-21 19:35] LABS: WBC,Urine Occasional #/hpf (0-3)
[2023-03-21 19:50] LABS: Benzodiazepines Screen,Urine Negative ng/ml (<200)
[2023-03-22 04:05] VITALS: BP 127/82; PULSE 67; RESP 17; TEMP 36.7; O2SAT 99
[2023-03-22 07:17] VITALS: BP 128/95; PULSE 86; RESP 18; TEMP 36.6; O2SAT 99
--- NOTE | 2023-03-22 07:21 | EXP.LABOR.NO ---
Labor Note Subjective: Date: 03/22/23 Time: 07:21 Objective: NST:: Reactive Contractions:: every 2-3 minutes Cervical Dilation:: 2 Effacement:: 90% Station: -1 Membranes: artificially ruptured Fetus: Monitoring?: Yes monitoring type:: External Assessment: Labor progressing?: Yes Cephalopelvic disproportion?: No Plan: Anesthesia for epidural?: Yes Continue to labor down?: Yes Plan for ?: No Continue to monitor?: Yes Start pushing?: No Comment:: I ruptured her membranes and there was clear fluid. Her cervix has progressed overnight. We will expect a vaginal delivery.
--- NOTE | 2023-03-22 07:22 | EXP.OB.APHP ---
OB - H&P: HPI Antepartum History of Present Illness Chief complaint: Small gestational age , oligohydramnios History of present illness: She is a 22-year-old 1 para 0 at 37 weeks gestational age. She has been followed for small for gestational age as well as oligohydramnios. Ultrasound yesterday showed that the baby was still small and there was no 2 x 2 pocket of fluid. As result of that we elected to induce her labor. History of Present Criteria for establishing EDC:: LMP confirmed by 1st trimester US care: good care Ultrasounds: normal 1st trimester US, normal mid trimester US and abnormal US findings (SGA, oligo) Obstetrical complications: growth restriction and other (Oligohydramnios) Medical complications: none Labs Blood type: A (+) positive Rubella: immune RPR/VDRL: nonreactive GBS status: negative HBsAG: negative PFSH PFSH Disclaimer: The information contained in this section may have been updated after the patient was seen, as this information can be updated by other users. Medical History Concussion without loss of consciousness Depression Overdose of trazodone complicated by previous recurrent miscarriages Suicide attempt TMJ (sprain of temporomandibular joint) Surgical History No history of previous surgery Family History Cancer Stroke Asthma Social History Smoking Status: Current every day smoker tobacco type: e-cigarettes alcohol intake: never substance use type: denies use current occupational status: employed Travel in the last 8 weeks: None number of children: 0 do you feel safe at home: Yes victim of physical abuse: No victim of emotional abuse: No victim of sexual abuse: No Review of Systems Review of Systems Review of systems:: pertinent systems reviewed and negative unless documented below Meds Home Medications and Allergies Home Medications Medication Instructions Recorded Confirmed Type ondansetron 4 mg disintegrating 4 mg PO Q8H PRN Nausea #30 tabs 03/04/23 03/21/23 Rx tablet New Prescriptions to Start Prescriptions: Allergies Allergy/AdvReac Type Severity Reaction Status Date / Time No Known Allergies Allergy Verified 03/21/23 10:41 OB - H&P: Exam Physical Exam Vital signs: Temp Pulse Resp BP Pulse Ox O2 Del Method 98.0 F 67 17 127/82 99 Room Air 03/22/23 04:05 03/22/23 04:05 03/22/23 04:05 03/22/23 04:05 03/22/23 04:05 03/22/23 04:05 Constitutional no acute distress Routine HEENT Exam Head: Present normocephalic Eye: Present EOMI ENT: Present mucous membranes moist Routine Neck Exam Present supple Routine Chest/Breast/Axilla Exam Chest wall: Absent tenderness Routine Respiratory Exam Present normal respiratory effort and symmetric chest movement; Absent accessory muscle use Routine Cardiovascular Exam Present RRR Routine Abdominal Exam Present soft; Absent tenderness Routine Rectal Exam Patient deferred: visual exam Routine Exam Patient deferred: external exam Routine Extremities Exam Present full ROM; Absent cyanosis Routine Back/Spine/Pelvis Exam Back/Spine: Present full ROM Routine Skin Exam Present intact Routine Neurological Exam Present alert and oriented X3 Routine Psychiatric Exam Present normal affect OB - Results Labs Labs: Short CBC 03/21/23 Range/Units 18:50 WBC 13.0 (4.5-13.0) K/mm3 Hgb 11.3 L (12.2-16.2) g/dL Hct 35.0 L (37.0-47.0) % Plt Count 487 H (142-424) K/mm3 Urine 03/21/23 Range/Units 18:50 Urine Color Yellow (Yellow) Urine Appearance Clear (Clear) Urine pH 6.0 (5.0-8.5) Ur Specific Decker 1.025 (1.005-1.030) Urine Protein Negative (Negative) Urine Glucose (U
--- NOTE | 2023-03-22 08:38 | HMH.PHAINT1 ---
Pharmacy Intervention Comments: MEDICATION RECONCILIATION COMPLETED ON PATIENT USING EXTERNAL FILL HISTORY FROM PHARMACY. -SANJIV RUBIO, [facility]
--- NOTE | 2023-03-22 09:46 | EXP.ANES.CKL ---
[facility] Disclaimer: The information contained in this section may have been updated after the patient was seen, as this information can be updated by other users. Medical History Concussion without loss of consciousness Depression Overdose of trazodone complicated by previous recurrent miscarriages Suicide attempt TMJ (sprain of temporomandibular joint) Surgical History No history of previous surgery Family History Other Asthma Cancer Stroke Social History Smoking Status: Current every day smoker tobacco type: e-cigarettes alcohol intake: never substance use type: denies use current occupational status: employed Travel in the last 8 weeks: None number of children: 0 do you feel safe at home: Yes victim of physical abuse: No victim of emotional abuse: No victim of sexual abuse: No [facility] Anesthesia Checklist Patient Identification Patient Identification: Arm Band and Verbal (Name & ) Structural Data Admitted From: Inpatient Planned Operative Procedure/s: Labor epidural Consent for Planned Operative Procedure(s) Verified: Yes NPO Status Verified Time NPO: 00:00 Chart Verification Results Verified: CBC Additional verifications Patient : Yes Airway Assessment C-Spine Mobility Assessed: Yes TMJ Mobility Assessed: Yes Dentition: Good Dentition Neurological Assessment Level of Consciousness: Awake Hx Seizures: No Numbness or tingling in extremities: No Anesthesia Plan Anesthesia Risk discussed: Yes Anesthesia Plan: Verified ASA Class: II Anesthesia Type: Epidural
--- NOTE | 2023-03-22 11:38 | EXP.LABOR.NO ---
Labor Note Subjective: Date: 03/22/23 Time: 09:45 regular contraction Objective: NST:: Reactive Contractions:: every 2-3 minutes Cervical Dilation:: 3 Effacement:: 90% Station: -2 Membranes: artificially ruptured Fetus: Monitoring?: Yes monitoring type:: External Assessment: Labor progressing?: Yes Cephalopelvic disproportion?: No Plan: Anesthesia for epidural?: Yes Continue to labor down?: Yes Plan for ?: No Continue to monitor?: Yes Start pushing?: No Comment:: She has changed her cervix from 2 to 3 cm. The nonstress test is reactive. She has regular contractions. She has her epidural now.
--- NOTE | 2023-03-22 13:47 | EXP.LABOR.NO ---
Labor Note Subjective: Date: 03/22/23 Time: 13:35 regular contraction Objective: NST:: Reactive Contractions:: every 2-3 minutes Cervical Dilation:: 5-6 Effacement:: 100% Station: 0 Membranes: artificially ruptured Fetus: Monitoring?: Yes monitoring type:: Internal and External Comment:: I inserted an IUPC at 1205. Assessment: Labor progressing?: Yes Cephalopelvic disproportion?: No Plan: Anesthesia for epidural?: Yes Continue to labor down?: Yes Plan for ?: No Continue to monitor?: Yes Start pushing?: No
--- NOTE | 2023-03-22 13:48 | EXP.LABOR.NO ---
Labor Note Subjective: Date: 03/22/23 Time: 12:05 regular contraction Objective: NST:: Reactive Contractions:: every 2-3 minutes Cervical Dilation:: 4 Effacement:: 100% Station: -1 Membranes: artificially ruptured Fetus: Monitoring?: Yes monitoring type:: Internal and External Comment:: I inserted an IUPC. Assessment: Labor progressing?: Yes Cephalopelvic disproportion?: No Plan: Anesthesia for epidural?: Yes Continue to labor down?: Yes Plan for ?: No Continue to monitor?: Yes Start pushing?: No
--- NOTE | 2023-03-22 16:11 | EXP.DN ---
Delivery Note Delivery Date:: 03/22/23 Delivery Time:: 15:43 Anesthesia Type: Epidural Was labor medically induced?: Yes Induction method: per misoprostol protocol Gestational age (weeks): 37 Infant delivered prior to 39 weeks?: Yes Justification for early elective delivery:: IUGR and Oligohydraminos Gender: Female at 1 minute: 7 at 5 minutes: 8 Delivery Procedure:: She is a 22-year-old to 1 para 0 at 37 weeks gestational age. She has been followed recently for a small for gestational age infant and oligohydramnios. An ultrasound yesterday showed that the baby was 5th percentile with low fluid. There was no 2 x 2 pocket of fluid. As result of that we elected to admit her for induction of labor at term. On the evening of March 21, 2023 she had Cervidil placed. She progressed to 2 cm overnight. We then had her membranes ruptured and she progressed under labor epidural with oxytocin augmentation to full dilation. She delivered a liveborn female at 3:43 PM in the end of March 22, 2023. On delivery the head the anterior shoulder then easily delivered followed by the rest the 's body atraumatically. The baby was vigorous so we allowed the cord to continue to pulsate for approximately 1 minute. The oropharynx and nasopharynx were bulb suction. The cord was then doubly clamped and cut and was placed on the mother's abdomen for further care. The nurses assigned Apgars of 7 at 1 minute and 9 at 5 minutes. We then obtained cord blood. She received IV oxytocin and using gentle traction on the cord and countertraction the fundus I was able to easily deliver the placenta intact. It had a normal three-vessel cord. There were no perineal or vaginal lacerations. She has a positive blood, she is rubella immune and was group B streptococcus negative. She plans to bottlefeed. Her ct scan tech is Dr. Varela. Estimated blood loss was approximately 200 cc. Placental Delivery Description: Spontaneous
[2023-03-23 03:45] VITALS: BP 114/65; PULSE 87; RESP 17; TEMP 36.6; O2SAT 99
[2023-03-23 06:46] LABS: Hematocrit 33.5 % (37.0-47.0); Hemoglobin 10.6 g/dL (12.2-16.2)
[2023-03-23 07:56] VITALS: BP 120/67; PULSE 69; RESP 20; TEMP 36.6; O2SAT 98
--- NOTE | 2023-03-23 10:48 | SW/DCPLANNER ---
Addendum entered by Marline Penhook 03/30/23 10:58: I have reported positive cord screen for THC to Central Intake: ID# [id number]. Addendum entered by Marline Penhook 03/23/23 13:53: Per Central Intake this case does meet criteria for investigation I have relayed information to OB staff (Nay). Addendum entered by Marline Penhook 03/23/23 11:33: ID# [id number] Original Note: I received a consult on this patient regarding: positive THC throughout and admission. Patient tested positive for THC on the following dates: 09/21/22, 12/02/22, 01/24/23, 02/16/23 and admission on 03/21/23. Infant urine drug screen was negative (this was the fourth urine due to feces in urine). cord screen has been sent off. Patient delivered female (Chio Goodwin) on 03/22/23. 's father (Rajat Goodwin 02) was present at the time of my visit. Patient, Rajat and will reside at [address] [place] [address] in [place] [address]. Patient's contact number is [phone]. Patient is already established w/ WIC and is not interested in HANDS. Patient stated that she has the following items at home: crib, carseat, clothing, diapers and will be bottle feeding. PEDS MD is Dr Varela. Patient stated that she will have transportation to all follow up appointments. OB staff (Cintia) does have concerns due to patient's attentiveness w/ infant and infant spending majority of time w/ staff in nursery. MD did enter Behavioral Health Consult on this patient. Patient is expected to discharge home tomorrow pending no setbacks. Due to THC use during I will report this to Central Intake this AM. I will follow up with ID #.
[2023-03-23 12:20] VITALS: BP 125/78; PULSE 62; RESP 18; TEMP 36.7; O2SAT 98
--- NOTE | 2023-03-23 16:21 | EXP.BH.CONS ---
History of Present Illness *Admission Date: 03/22/23 *Reason for visit:: depression/anxiety *History of present illness: I interviewed patient in her room on OB. -she delivered a baby girl yesterday -she states that she has anxiety and depression -but it comes and goes -she has had this for a long time -this is nothing new -she states that she has been better since she met her boyfriend -they have together for 2 years -she states that the baby was a planned baby -they had 2 miscarriages before her -that she was tearful yesterday cause she was in a lot of pain -but she feels better today She states that she has had SI/SH in the past. -the last time she cut she was 19 years old -the only time she attempted SI was when she was 18 years old -she states that she took a bunch of her brothers depression pills -the pills made her sick and she threw up -then they admitted her to [facility] after that -she was put on effexor; but didn't like how this made her feel -she eventually stopped it and quit going to the doctor for her follow-ups She states that it will be her and her boyfriend at home. -they live together; just the 2 of them -and now their baby girl -that she works at [employer] -she wants to return to work as soon as possible for money/financial reasons -he works at [employer] -they will work different shifts so they don't have to pay for childcare -she states that she is nervous about everything but she has always been someone that worries -worries; about finances; bills; just what will happen in the day today -she states that she doesn't feel that she needs medicines -she wants to remain off of everything -that she is able to handle it on her own -I also offered to make her a follow-up appointment just to check in with her in a few weeks to make sure things are going good with the new baby -again she declined I did leave our number with the staff on the floor to give her. -she can call and schedule an appointment at any time [facility] Disclaimer: The information contained in this section may have been updated after the patient was seen, as this information can be updated by other users. Medical History (Updated 03/23/23 @ 16:28 by Tania Garcia APRN) Concussion without loss of consciousness Depression Generalized anxiety disorder Overdose of trazodone complicated by previous recurrent miscarriages Suicide attempt TMJ (sprain of temporomandibular joint) Surgical History No history of previous surgery Family History Other Asthma Cancer Stroke Social History Smoking Status: Current every day smoker tobacco type: e-cigarettes alcohol intake: never substance use type: denies use current occupational status: employed Travel in the last 8 weeks: None number of children: 0 do you feel safe at home: Yes victim of physical abuse: No victim of emotional abuse: No victim of sexual abuse: No Review of Systems Review of Systems Review of systems:: other (did not obtain) Meds Home Medications and Allergies Home Medications Medication Instructions Recorded Confirmed Type ondansetron 4 mg disintegrating 4 mg PO Q8HP PRN Nausea 03/22/23 03/22/23 History tablet New Prescriptions to Start Prescriptions: Allergies Allergy/AdvReac Type Severity Reaction Status Date / Time No Known Allergies Allergy Verified 03/21/23 10:41 Assessment and Plan *Assessment and plan (1) Generalized anxiety disorder: Status: Acute Category: Medical Code(s): F41.1 - Generalized anxiety disorder Plan No medicines or follow-up appointment scheduled. -she will be given our number by staff in case she changes her mind
[2023-03-23 20:19] VITALS: BP 132/81; PULSE 77; RESP 17; TEMP 36.7; O2SAT 100
[2023-03-24 04:00] VITALS: BP 126/78; PULSE 78; RESP 17; TEMP 36.6; O2SAT 99
--- NOTE | 2023-03-24 09:59 | EXP.DC.SUM ---
General Admission date:: 03/21/23 Discharge date: 03/24/23 HPI HPI HPI: She is a 22-year-old 3 now para 1 aborta 2 who was 37 weeks gestational age. She was seen in the office and had oligohydramnios as well as small for gestational age . As result of that we elected to induce her labor at term. Hospital Course Hospital Course Hospital Course: She was admitted on the evening of March 21, 2023 and had Cervidil placed. The following morning she was started on IV oxytocin had her membranes ruptured. Under labor epidural she progressed to full dilation and delivered spontaneously a liveborn female child at 3:43 PM in the afternoon of March 22, 2023. The baby weighed 6 pounds 2 ounces and was 18 inches long. She had Apgars of 7 at 1 minute and 8 at 5 minutes. There were no perineal lacerations. She has a positive blood, she is rubella immune and was repeat stopcock is negative. Her aba tutor is Dr. Varela. While hospitalized she did score high on her depression scale. She was seen by Tania Garcia and psychology. I spoke to the patient and she wants to start on Lexapro. She has been taking Effexor in the past and she said it did not really work for her. She does have some depression as well as anxiety so I think Lexapro might be a good choice for her we will plan to follow-up with her in 2 weeks time. She will continue with her vitamins and iron. Exam Data for Last 24 hours Vital signs and Labs for Last 24 Hours: Temp Pulse Resp BP Pulse Ox O2 Del Method 98 F 78 17 126/78 99 Room Air 03/24/23 04:00 03/24/23 04:00 03/24/23 04:00 03/24/23 04:00 03/24/23 04:00 03/24/23 04:00 I & O for Last 24 hours: Intake & Output 03/21/23 03/22/23 03/23/23 03/24/23 11:59 11:59 11:59 11:59 Output Total 1000 / 1000 Balance -1000 / -1000 Weight 140 lb 0.002 oz Constitutional Constitutional: no acute distress *Routine HEENT Exam Head: Present normocephalic *Routine Neck Exam Neck: Present supple *Routine Respiratory Exam Respiratory: Present normal respiratory effort Routine Psychiatric Exam Psychiatric: Present normal affect; Absent suicidal ideation DS: Diagnosis Discharge Diagnosis (1) Generalized anxiety disorder: Status: Acute Code(s): F41.1 - Generalized anxiety disorder (2) Oligohydramnios in third trimester: Status: Acute Code(s): O41.03X0 - Oligohydramnios, third trimester, not applicable or unspecified Qualifiers: Fetus number: single or unspecified fetus Qualified Code(s): O41.03X0 - Oligohydramnios, third trimester, not applicable or unspecified (3) affected by growth restriction: Status: Acute Code(s): O36.5990 - Maternal care for other known or suspected poor growth, unspecified trimester, not applicable or unspecified Problem details: EFW 6% (4) Marijuana use during : Status: Acute Code(s): O99.320 - Drug use complicating , unspecified trimester; F12.90 - Cannabis use, unspecified, uncomplicated (5) Positive urine drug screen: Status: Acute Code(s): R82.5 - Elevated urine levels of drugs, medicaments and biological substances Problem details: THC 09/21/22 (6) Normal delivery: Status: Acute Code(s): O80 - Encounter for full-term uncomplicated delivery Meds Home Medications and Allergies Home Medications Medication Instructions Recorded Confirmed Type ondansetron 4 mg disintegrating 4 mg PO Q8HP PRN Nausea 03/22/23 03/22/23 History tablet escitalopram oxalate 10 mg tablet 10 mg PO DAILY #30 tabs 03/24/23 Rx (Lexapro) New Prescriptions to Start Prescriptions: escitalopram oxalate [Lexapro] Rajat Clemons Allergies Allergy/AdvReac Type Severity Reaction Status Date / Time No Known Allergies Allergy Verified 03/21/23 10:41 Discharge Plan Disposition Patient Dis
--- NOTE | 2023-03-24 11:12 | EXP.ACUTE.PN ---
Subjective *Date: 03/23/23 *Time: 08:30 Interval history: She is doing very well 1 day . She did score high on her [place] depression scale. We talked about her depression and anxiety. She has taken an antidepressant in the past. We will have her see Tania Garcia today. She also has a consult in for social contact worker since she was positive for marijuana. She is bottlefeeding. Her lochia is normal. She is otherwise doing very well. Medical Exam Vital signs and Labs for Last 24 Hours: Vital Signs Temp Pulse Resp BP Pulse Ox O2 Del Method 03/24/23 04:00 98 F 78 17 126/78 99 Room Air 03/23/23 20:19 98.1 F 77 17 132/81 100 Room Air 03/23/23 12:20 98.0 F 62 18 125/78 98 Room Air I & O for Labs for Last 24 Hours: Intake & Output 03/21/23 03/22/23 03/23/23 03/24/23 11:59 11:59 11:59 11:59 Output Total 1000 / 1000 Balance -1000 / -1000 Weight 140 lb 0.002 oz Head: Present atraumatic ENT: Present normal exam Neck: Present normal inspection Respiratory: Present normal respiratory effort; Absent accessory muscle use Assessment and Plan *Assessment and plan (1) Normal delivery: Status: Acute Category: Medical Code(s): O80 - Encounter for full-term uncomplicated delivery (2) Generalized anxiety disorder: Status: Acute Category: Medical Code(s): F41.1 - Generalized anxiety disorder Plan We have a consult in for Tania Garcia. She may be a candidate for an antidepressant as well. We will see her tomorrow.
== END 2023-03-24 13:20 | disposition home or self-care (01) | DRG 806 ==
LOC: OBOUT 20:03 → OB 20:03
PROVIDERS: Admitting Provider Nurse Practitioner Obstetrics & Gynecology; Visit Provider Nurse Practitioner Obstetrics & Gynecology
DX: O41.03X0 Oligohydramnios, third trimester, not applicable or unspecified (principal); O99.324 Drug use complicating childbirth; Z37.0 Single live birth; Z3A.37 37 weeks gestation of pregnancy; O36.5990 Maternal care for other known or suspected poor fetal growth, unspecified trimester, not applicable or unspecified; F12.90 Cannabis use, unspecified, uncomplicated; R82.5 Elevated urine levels of drugs, medicaments and biological substances; F41.1 Generalized anxiety disorder; O99.344 Other mental disorders complicating childbirth
CPT/HCPCS: 59409; 59025; 76816; 76819; 76820; 80305; 81001; 85014; 85018; 85025; 86850; 87636; 94761; C1758; G0283; J2405

== ENCOUNTER 2023-04-19 12:18 | Emergency (ER) | payer OTHER, SELFPAY ==
[2023-04-19 12:28] VITALS: BP 109/69; PULSE 102; RESP 20; TEMP 36.8; O2SAT 98; BMI 24.6
--- NOTE | 2023-04-19 12:45 | HMH.EDGENADL ---
Discharge Plan Disposition Patient Disposition: Home, Self-Care Condition: Good Prescriptions Prescriptions: New sulfamethoxazole-trimethoprim 800-160 mg tablet 1 tab PO Q12H 10 Days Qty: 20 0RF Referrals Follow up/Referrals: Provider,Referral, [Primary Care Provider] - See instructions Activity Restrictions/Add. Instructions Additional Instructions/Restrictions: You were evaluated in the emergency department today. Please follow-up with your primary care provider. We have provided you with a list. 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 Apply warm compresses to the area. Avoid shaving. Return to the emergency department for any new or worsening symptoms. Clinical Impressions Clinical Impression: Folliculitis of right axilla Stand Alone Forms Stand Alone Forms: Work/School Release Instructions Patient Instructions: DI for Skin Abscess, DI for Folliculitis Discharge ED Provider: Janis Melton General Adult HPI General Chief complaint: Skin/Abscess/Foreign Body Stated complaint: bumps under arm Time Seen by Provider: 04/19/23 12:33 Mode of Arrival: Ambulatory Source of Information: Patient Limitations: No Limitations Description of Symptoms (Recalled from ER Triage Doc. by RN): pt to ed c/o knot under left arm pit. pt states she first noticed one x1 week ago that was draining, pt noticed another last night. History of Present Illness HPI narrative: This patient is a 22-year-old female with no significant past medical history presenting to the emergency department for evaluation with concern for bumps and pain in the right axilla. She noted that she had a boil there a week ago that was draining, which resolved. Last night, she noted a new area of swelling that has not come to ahead. She states that it is painful to move her arm. She denies any other concerns or complaints, such as fevers, chills, or other issues. She denies any lesions elsewhere, such as in her other axilla or groin. She denies any history of hidradenitis suppurativa or recurrent boils. Related Data Previous Rx's Medication Instructions Recorded sulfamethoxazole 800 1 tab PO Q12H 10 days #20 tabs 04/19/23 mg-trimethoprim 160 mg tablet Allergies Allergy/AdvReac Type Severity Reaction Status Date / Time No Known Allergies Allergy Verified 04/05/23 09:56 [facility] Disclaimer: The information contained in this section may have been updated after the patient was seen, as this information can be updated by other users. 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 Suicide attempt TMJ (sprain of temporomandibular joint) Surgical History No history of previous surgery Family History Other Asthma Cancer Stroke Social History Smoking Status: Never smoker alcohol intake: never substance use type: denies use current occupational status: employed Travel in the last 8 weeks: None number of children: 0 do you feel safe at home: Yes victim of physical abuse: No victim of emotional abuse: No victim of sexual abuse: No ROS Obtained: Yes All systems reviewed & no additional complaints except as documented Physical Exam General General appearance: alert and in no apparent distress Head Head exam: atraumatic and normocephalic Eye Eye exam: Present normal appearance and PERRL ENT ENT exam: Present normal exam, normal oropharynx and mucous membranes moist Neck Neck exam: Present normal inspection, full ROM and trachea midline; A
[2023-04-19 12:53] VITALS: BP 109/69; PULSE 102; RESP 19; TEMP 36.8
== END 2023-04-19 12:54 | disposition home or self-care (01) ==
PROVIDERS: Emergency Provider Emergency Medicine
DX: L02.421 Furuncle of right axilla (principal); F32.A Depression, unspecified; F41.1 Generalized anxiety disorder
CPT/HCPCS: 99283

== ENCOUNTER 2023-04-21 18:34 | Emergency (ER) | payer OTHER, SELFPAY ==
[2023-04-21 18:35] VITALS: BP 105/71; PULSE 109; RESP 16; TEMP 36.8; O2SAT 99; BMI 24.4
--- NOTE | 2023-04-21 20:24 | HMH.EDGENADL ---
Discharge Plan Disposition Patient Disposition: Home, Self-Care Condition: Good Prescriptions Prescriptions: New clindamycin HCl 300 mg capsule 300 mg PO Q6H 7 Days Qty: 28 0RF No Action sulfamethoxazole-trimethoprim 800-160 mg tablet 1 tab PO Q12H 10 Days Qty: 20 0RF Referrals Follow up/Referrals: Provider,Referral, [Primary Care Provider] - See instructions Activity Restrictions/Add. Instructions Additional Instructions/Restrictions: Please begin taking clindamycin instead of the Bactrim. Continue to monitor the area. It looks like you have inflamed lymph nodes under the skin. If if they do not improve with antibiotics then they will likely need further work-up including possible biopsy or be removed. Recommend following up with primary care provider. If symptoms don't improve please follow up with general surgery as they would be the physicians to perform a possible biopsy or lymph node excision. Clinical Impressions Clinical Impression: Acute axillary lymphadenitis Stand Alone Forms Stand Alone Forms: Work/School Release Instructions Patient Instructions: DI for Skin Abscess Discharge ED Provider: David Knight General Adult HPI General Chief complaint: Skin/Abscess/Foreign Body Stated complaint: poss inf cysts under RT arm Time Seen by Provider: 04/21/23 19:43 Mode of Arrival: Ambulatory Source of Information: Patient Limitations: No Limitations Description of Symptoms (Recalled from ER Triage Doc. by RN): Presents to ED with c/o abcess under right armpit x 2 dyas. Patient report she was seen in ED for same complaint and was Rx'd abd and is still currently on. Patient reports using heating pad with no relief. History of Present Illness HPI narrative: 22-year-old female previously healthy presents with pain in her right axilla. She was seen here couple of days ago and was noted to have likely folliculitis associated with shaving. She was discharged with prescription for Bactrim but symptoms have not improved despite taking it as prescribed. She reports she has had new swelling and pain in that area. No systemic symptoms such as fever. She reports no injury to that arm, specifically denies cat bite, lacerations. Related Data Previous Rx's Medication Instructions Recorded sulfamethoxazole 800 1 tab PO Q12H 10 days #20 tabs 04/19/23 mg-trimethoprim 160 mg tablet clindamycin HCl 300 mg capsule 300 mg PO Q6H 7 days #28 caps 04/21/23 Allergies Allergy/AdvReac Type Severity Reaction Status Date / Time No Known Allergies Allergy Verified 04/05/23 09:56 [facility] Disclaimer: The information contained in this section may have been updated after the patient was seen, as this information can be updated by other users. 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 Suicide attempt TMJ (sprain of temporomandibular joint) Surgical History No history of previous surgery Family History Other Asthma Cancer Stroke Social History Smoking Status: Current every day smoker tobacco type: e-cigarettes alcohol intake: never substance use type: denies use current occupational status: employed Travel in the last 8 weeks: None number of children: 0 do you feel safe at home: Yes victim of physical abuse: No victim of emotional abuse: No victim of sexual abuse: No ROS Obtained: Yes All systems reviewed & no additional complaints except as documented Physical Exam General General appearance: alert and in no apparent distress Head Head e
[2023-04-21 21:30] VITALS: BP 105/71; PULSE 109; RESP 16; TEMP 36.8; O2SAT 99
== END 2023-04-21 21:37 | disposition home or self-care (01) ==
PROVIDERS: Emergency Provider Emergency Medicine
DX: L02.411 Cutaneous abscess of right axilla (principal); R59.9 Enlarged lymph nodes, unspecified; F32.A Depression, unspecified; F41.1 Generalized anxiety disorder; F17.290 Nicotine dependence, other tobacco product, uncomplicated
CPT/HCPCS: 99284

== ENCOUNTER 2023-10-25 17:48 | Emergency (ER) | payer OTHER, SELFPAY ==
[2023-10-25 17:59] VITALS: BP 126/92; PULSE 121; RESP 18; TEMP 36.9; O2SAT 99; BMI 25.4
[2023-10-25 18:00] VITALS: BP 118/78; PULSE 102; RESP 20; O2SAT 96
--- NOTE | 2023-10-25 18:02 | ED_ITS ---
Discharge Plan Disposition Patient Disposition: Home, Self-Care Condition: Good Prescriptions Prescriptions: New cephalexin 500 mg capsule 500 mg PO BID 10 Days Qty: 20 0RF No Action Nexplanon 68 mg implant subdermal Referrals Follow up/Referrals: Provider,Referral, [Primary Care Provider] - See instructions Activity Restrictions/Add. Instructions Additional Instructions/Restrictions: Please keep wound dry and covered for 24 hours. May wash with soap and water after. Please do not use an occlusive dressing and only use gauze to cover the suture line. Please return for wound check if any signs of infection including erythema edema drainage pain. Sutures need to be removed in approximately 10 days and you can return to the ER or your PCP for that. Clinical Impressions Clinical Impression: Laceration Stand Alone Forms Stand Alone Forms: Work/School Release Instructions Patient Instructions: DI for Laceration Repair Discharge ED Provider: Monique Omalley General Adult HPI General Chief complaint: Wound/Laceration Stated complaint: cut on left lower leg , its swollen and burning Time Seen by Provider: 10/25/23 18:02 Related Data Home Medications Medication Instructions Recorded Confirmed etonogestrel 68 mg subdermal subdermal 06/09/23 06/09/23 implant (Nexplanon) Previous Rx's Medication Instructions Recorded cephalexin 500 mg capsule 500 mg PO BID 10 days #20 caps 10/25/23 Allergies Allergy/AdvReac Type Severity Reaction Status Date / Time No Known Allergies Allergy Verified 06/09/23 14:39 [facility] Disclaimer: The information contained in this section may have been updated after the patient was seen, as this information can be updated by other users. 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 Suicide attempt TMJ (sprain of temporomandibular joint) Surgical History No history of previous surgery Family History Other Asthma Cancer Stroke Social History Smoking Status: Never smoker alcohol intake: never substance use type: denies use current occupational status: employed Travel in the last 8 weeks: None number of children: 0 do you feel safe at home: Yes victim of physical abuse: No victim of emotional abuse: No victim of sexual abuse: No ROS Obtained: Yes Systems reviewed as appropriate & no additional complaints except as documented Physical Exam General General appearance: alert and in no apparent distress Respiratory Respiratory exam: Present normal lung sounds bilaterally Cardiovascular Cardiovascular exam: Present regular rate and normal rhythm Neurological Exam Neurological exam: Present alert and oriented X3 Medical Decision Making Nadir Inquiry Pt receiving controlled substance: No Vital Signs: 10/25/23 17:59 10/25/23 18:00 Temperature 98.4 F Temperature Source Oral Pulse Rate 102 H Pulse Rate [Right Brachial] 121 H Respiratory Rate 18 20 Blood Pressure 118/78 Blood Pressure [Right Arm] 126/92 H Blood Pressure Mean 91 Blood Pressure Mean [Right Arm] 103 02 Sat by Pulse Oximetry 99 96 Oxygen Delivery Method Room Air Orders (Tests/Meds): ED MEDICATIONS Discontinued Medications Generic Name Dose Route Start Last Admin Trade Name Maya PRN Reason Stop Dose Admin Cocaine HCl 1 ml 10/25/23 18:06 10/25/23 18:27 Cocaine 4% Topical Soln 4ml Bottle TP 10/25/23 18:07 1 ml ONCE ONE Administration Epinephrine HCl 1 mg 10/25/23 18:06 10/25/23 18:28 Epinephrine 1 Mg/Ml Ampul TP 10/25/23 18:07 1 mg ONCE ONE Administration Lidocaine HCl 1 ml 10/25/23 18:06 10/25/23 18:27 Lidocaine 2% Urojet 10ml TP 10/25/23 18:07 1 ml ONCE ONE Administration Tetanus/Reduced Diphtheria/Acell Pertussis 0.5 ml 10/25/23 18:06 10/25/23 18:24 Tet/Diphth/Pert-Adult 0.5ml Syringe IM 10/25/23 18:07 0.5 ml .ONCE ONE Administration Critical Care Critical Care Time Critical Care Time: No
[2023-10-25] MEDS: TET/DIPHTH/PERT-ADULT 0.5ML SYRINGE 0.5 ML IM (18:24)
[2023-10-25] MEDS: COCAINE 4% TOPICAL SOLN 4ML BOTTLE 1 ML TP (18:27)
[2023-10-25] MEDS: LIDOCAINE 2% UROJET 10ML TP (18:27)
[2023-10-25] MEDS: EPINEPHrine 1 MG/ML AMPUL TP (18:28)
[2023-10-25 19:35] VITALS: BP 147/96; PULSE 101; RESP 16; TEMP 36.8; O2SAT 97
--- NOTE | 2023-10-25 19:38 | ED_ITS ---
I was consulted by the ROSE, and we discussed the complexity of the problems being addressed. I approved the treatment and management plan for this patient's care in the emergency department, thus performing a substantive portion of the medical decision making. Monique Omalley MD, PETRA, FACEP Discharge Plan Disposition Patient Disposition: Home, Self-Care Condition: Good Prescriptions Prescriptions: New cephalexin 500 mg capsule 500 mg PO BID 10 Days Qty: 20 0RF No Action Nexplanon 68 mg implant subdermal Referrals Follow up/Referrals: Provider,Referral, [Primary Care Provider] - See instructions Activity Restrictions/Add. Instructions Additional Instructions/Restrictions: Please keep wound dry and covered for 24 hours. May wash with soap and water after. Please do not use an occlusive dressing and only use gauze to cover the suture line. Please return for wound check if any signs of infection including erythema edema drainage pain. Sutures need to be removed in approximately 10 days and you can return to the ER or your PCP for that. Clinical Impressions Clinical Impression: Laceration Stand Alone Forms Stand Alone Forms: Work/School Release Instructions Patient Instructions: DI for Laceration Repair Discharge ED Provider: Monique Omalley General Adult HPI General Chief complaint: Wound/Laceration Stated complaint: cut on left lower leg , its swollen and burning Time Seen by Provider: 10/25/23 18:02 Mode of Arrival: Ambulatory Source of Information: Patient Limitations: No Limitations Description of Symptoms (Recalled from ER Triage Doc. by RN): Patient reports she was reaching under her couch for something and cut her leg on a piece of glass yesterday. Patient has a laceration to her lower right leg History of Present Illness HPI narrative: Patient is a 23-year-old female presents 4 hrs. after suffering a laceration from a broken dish in her home. Related Data Home Medications Medication Instructions Recorded Confirmed etonogestrel 68 mg subdermal subdermal 06/09/23 06/09/23 implant (Nexplanon) Previous Rx's Medication Instructions Recorded cephalexin 500 mg capsule 500 mg PO BID 10 days #20 caps 10/25/23 Allergies Allergy/AdvReac Type Severity Reaction Status Date / Time No Known Allergies Allergy Verified 06/09/23 14:39 [facility] Disclaimer: The information contained in this section may have been updated after the patient was seen, as this information can be updated by other users. 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 Suicide attempt TMJ (sprain of temporomandibular joint) Surgical History No history of previous surgery Family History Other Asthma Cancer Stroke Social History Smoking Status: Never smoker alcohol intake: never substance use type: denies use current occupational status: employed Travel in the last 8 weeks: None number of children: 0 do you feel safe at home: Yes victim of physical abuse: No victim of emotional abuse: No victim of sexual abuse: No ROS Obtained: Yes Systems reviewed as appropriate & no additional complaints except as documented Physical Exam Narrative Physical exam: Patient is a well-nourished well-developed 43-year-old female currently in no acute distress General General appearance: alert and in no apparent distress Head Head exam: atraumatic Chest Chest inspection: Present normal inspection Respiratory Respiratory exam: Present normal lung sounds bilaterally Cardiovascular Cardiovascular exam: Present regular rate and normal rhythm Extremities Exam Extremities exam: Present normal inspection, full ROM and other (Patient has a hockey puck transverse laceration across the anterior surface of the right lower extremity just proximal to the flexor crease) Neurological Exam Neurological exam: Present alert and oriented X3 Skin Skin exam: Present warm, dry, intact and other (Except where mentioned above in the musculoskeletal exam) Medical Decision Making Medical Records Medical records reviewed: Yes I reviewed the patient's medical records. Nadir Inquiry Pt receiving controlled substance: No Vital Signs: 10/25/23 17:59 10/25/23 18:00 10/25/23 19:35 Temperature 98.4 F 98.2 F Temperature Source Oral Oral Pulse Rate 102 H 101 H Pulse Rate [Right Brachial] 121 H Respiratory Rate 18 20 16 Blood Pressure 118/78 147/96 H Blood Pressure [Right Arm] 126/92 H Blood Pressure Mean 91 Blood Pressure Mean [Right Arm] 103 Blood Pressure Source Automatic Cuff Blood Pressure Position Sitting 02 Sat by Pulse Oximetry 99 96 Oxygen Delivery Method Room Air Room Air Lab Data Lab results reviewed: Yes I reviewed the patient's lab results. Orders (Tests/Meds): ED MEDICATIONS Discontinued Medications Generic Name Dose Route Start Last Admin Trade Name Maya PRN Reason Stop Dose Admin Cocaine HCl 1 ml 10/25/23 18:06 10/25/23 18:27 Cocaine 4% Topical Soln 4ml Bottle TP 10/25/23 18:07 1 ml ONCE ONE Administration Epinephrine HCl 1 mg 10/25/23 18:06 10/25/23 18:28 Epinephrine 1 Mg/Ml Ampul TP 10/25/23 18:07 1 mg ONCE ONE Administration Lidocaine HCl 1 ml 10/25/23 18:06 10/25/23 18:27 Lidocaine 2% Urojet 10ml TP 10/25/23 18:07 1 ml ONCE ONE Administration Tetanus/Reduced Diphtheria/Acell Pertussis 0.5 ml 10/25/23 18:06 10/25/23 18:24 Tet/Diphth/Pert-Adult 0.5ml Syringe IM 10/25/23 18:07 0.5 ml .ONCE ONE Administration Medical Decision Narrative: In summary patient is a 23-year-old female who presents to the emergency department for evaluation of 24-hour old laceration to her right lower extremity. Patient is hemodynamically stable upon arrival, afebrile. Exam exam shows a 7 cm hockey puck shaped transverse laceration to the right distal perez proximal to the flexor crease. Patient is neurovascular intact distally. Wound is slightly gaping but is not currently bleeding. No evidence of infection. Consider deeper infection but was cut with a clean glass bowl. Given that it is greater than 24 hours since injury considered a greater risk of infection but no evidence of such currently. Wound was repaired please see note below. Patient is appropriate for discharge now with wound instructions for laceration. Procedures Laceration Laceration 1: Site: lower extremity Side (If applicable): right Size (cm): 7 Description: other (Transverse hockey puck shaped) Depth: involves subcutaneous layer Local Anesthetic: lidocaine 1% and with epi Amount of anesthesia used (mL): 10 Pre-repair: wound explored, irrigated extensively and deep structures intact Skin layer closed with: nylon Size (cm): 4-0 Number of sutures: 7 Technique: simple, interrupted (6) and other (1 vertical mattress) Number of sutures: 1 Critical Care Critical Care Time Critical Care Time: No
== END 2023-10-25 19:36 | disposition home or self-care (01) ==
PROVIDERS: Emergency Provider Student in an Organized Health Care Education/Training Program
DX: S81.811A Laceration without foreign body, right lower leg, initial encounter (principal); W26.8XXA Contact with other sharp object(s), not elsewhere classified, initial encounter
CPT/HCPCS: 12032; 90471; 90715; 99283

== ENCOUNTER 2023-11-05 17:06 | Emergency (ER) | payer OTHER, SELFPAY ==
[2023-11-05 17:20] VITALS: BP 125/81; PULSE 103; RESP 19; TEMP 36.7; O2SAT 97; BMI 27.4
[2023-11-05 17:27] VITALS: BP 125/81; PULSE 103; RESP 19; TEMP 36.7; O2SAT 97
== END 2023-11-05 17:30 | disposition home or self-care (01) ==
LOC: UTC 17:08
PROVIDERS: Emergency Provider Nurse Practitioner Family
DX: Z48.02 Encounter for removal of sutures (principal)

== ENCOUNTER 2024-10-09 10:26 | Emergency (ER) | payer SELFPAY ==
--- NOTE | 2024-10-09 11:10 | EXP.UTC ---
Discharge Plan Disposition Patient Disposition: Home, Self-Care Condition: Good Prescriptions Prescriptions: New dquhiutwvhnfhdi-mcbvtqlfc-LW [Bromfed DM] 2-30-10 mg/5 mL Syrup 5 ml PO Q6H PRN (Reason: Cough) Qty: 240 0RF ondansetron 4 mg Tablet,Disintegrating 4 mg PO Q8H PRN (Reason: Nausea) Qty: 12 0RF No Action Nexplanon 68 mg implant subdermal cephalexin 500 mg capsule 500 mg PO BID 10 Days Qty: 20 0RF Referrals Follow up/Referrals: Provider,Referral, MD [Primary Care Provider] - See instructions Activity Restrictions/Add. Instructions Additional Instructions/Restrictions: Drink plenty of fluids. Take tylenol or ibuprofen for pain or fever. Take the medications as directed. Follow up with your regular doctor. GO TO THE ER FOR ANY WORSENING SYMPTOMS Clinical Impressions Clinical Impression: Acute viral syndrome Stand Alone Forms Stand Alone Forms: Work/School Release Instructions Patient Instructions: DI for Viral Syndrome Print Language Print Language: Setswana Discharge ED Provider: Harish Sharpe [facility] General Stated complaint: body aches, sore throat, headache Time Seen by Provider: 10/09/24 11:10 Related Data Home Medications ?Medication ?Instructions ?Recorded ?Confirmed etonogestrel 68 mg subdermal subdermal 06/09/23 06/09/23 implant (Nexplanon) Previous Rx's ?Medication ?Instructions ?Recorded cephalexin 500 mg capsule 500 mg PO BID 10 days #20 caps 10/25/23 zyhfybmivatrnod-eapdnnqnabbdbqy-[place] 5 ml PO Q6H PRN Cough #240 mL 10/09/24 2 mg-30 mg-10 mg/5 mL oral syrup (Bromfed DM) ondansetron 4 mg disintegrating 4 mg PO Q8H PRN Nausea #12 tabs 10/09/24 tablet Allergies Allergy/AdvReac Type Severity Reaction Status Date / Time No Known Allergies Allergy Verified 06/09/23 14:39 [facility] Disclaimer: The information contained in this section may have been updated after the patient was seen, as this information can be updated by other users. 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 Suicide attempt TMJ (sprain of temporomandibular joint) Surgical History No history of previous surgery Family History Other Asthma Cancer Stroke Social History Smoking Status: Never smoker alcohol intake: never substance use type: denies use current occupational status: employed Travel in the last 8 weeks: None number of children: 0 do you feel safe at home: Yes victim of physical abuse: No victim of emotional abuse: No victim of sexual abuse: No Have you lived/traveled outside [place] in past 30 days?: No Contact w/someone who lives/traveled outside [place] past 30 days?: No Exposure to someone with infectious disease in past 14 days?: No Do you have a fever (greater than 100.4 F or 38 C)?: No Have you tested positive for COVID-19: No Exposed to someone with COVID-19 in past 14 days?: No Do you have a sore throat?: Yes Do you have a cough?: No Do you have any weakness?: No Do you have any diarrhea?: No Are you experiencing any unusual bleeding?: No Do you have any muscle aches/pain?: Yes Do you have any abdominal pain?: No Are you experiencing loss of taste or smell?: No ROS Obtained: Yes All systems reviewed & no additional complaints except as documented Constitutional Constitutional: Reports chills and Reports fever(s) Eyes Eyes: Denies eye discharge ENT Ears, Nose, Mouth, and Throat: Reports as per HPI Cardiovascular Cardiovascular: Denies chest pain Respiratory Respiratory: Denies chest congestion and Reports cough Gastrointestinal Gastrointestingal: Reports nausea; Denies abdominal pain, constipation, cramping, diarrhea or vomiting Musculoskeletal Musculoskeletal: Denies arthralgias Integumentary/Breasts Skin/Breast: Denies rash Neurologic Neurologic: Denies paresthesias Physical Exam General General appearance: alert and in no apparent distress Head Head exam: atraumatic, normocephalic and normal inspection Eye Eye exam: Present normal appearance, PERRL and EOMI ENT ENT exam: Present normal exam, normal oropharynx, mucous membranes moist, TM's normal bilaterally and normal external ear exam Neck Neck exam: Present normal inspection, full ROM and trachea midline; Absent meningismus or lymphadenopathy Chest Chest inspection: Present normal inspection and symmetric chest wall rise; Absent tenderness Respiratory Respiratory exam: Present normal lung sounds bilaterally; Absent respiratory distress Cardiovascular Cardiovascular exam: Present regular rate and normal rhythm; Absent JVD Abdominal Exam Abdominal exam: Present soft and normal bowel sounds; Absent distention, tenderness or guarding Extremities Exam Extremities exam: Present normal inspection, full ROM and normal capillary refill; Absent calf tenderness Back Exam Back exam: Present normal inspection; Absent tenderness Neurological Exam Neurological exam: Present alert and oriented X3 Psychiatric Psychiatric exam: Present normal affect and normal mood Skin Skin exam: Present warm, dry, intact and normal color Lymphatic Lymphatic Findings: no adenopathy Medical Decision Making Medical Records Medical records reviewed: No I reviewed the patient's medical records. Screening: Per USPSTF and CDC recommendations, given the prevalence of disease in our region, it is our hospital?s policy to screen for HIV and viral Hepatitis for all patients aged 18 and over and those with ongoing risk factors. Nadir Inquiry Pt receiving controlled substance: No Lab Data Lab results reviewed: Yes I reviewed the patient's lab results.
[2024-10-09 11:22] VITALS: BP 130/85; PULSE 135; RESP 18; TEMP 37.4; O2SAT 98; BMI 25.4
[2024-10-09 11:44] LABS: UTC Strep Screen (Rapid) Negative (Negative)
[2024-10-09 11:45] LABS: UTC Influenza A Antigen Negative (Negative); UTC Influenza B Antigen Negative (Negative)
[2024-10-09] MEDS: IBUPROFEN 600 MG TABLET PO (12:02)
[2024-10-09 12:06] VITALS: BP 130/85; PULSE 135; RESP 18; TEMP 37.4
[2024-10-09 12:15] LABS: Influenza A, PCR Not Detected (NotDetected); Influenza B, PCR Not Detected (NotDetected)
[2024-10-09 14:32] LABS: Coronavirus 19, PCR Detected (NotDetected)
== END 2024-10-09 12:12 | disposition home or self-care (01) ==
PROVIDERS: Emergency Provider Nurse Practitioner Family
DX: B34.9 Viral infection, unspecified (principal)
CPT/HCPCS: 87636; 87804; 87880; 99213; G0381

== ENCOUNTER 2025-03-09 10:23 | Emergency (ER) | payer SELFPAY ==
[2025-03-09 10:28] VITALS: BP 130/74; PULSE 74; O2SAT 98
[2025-03-09 10:29] VITALS: BP 130/74; PULSE 85; RESP 16; TEMP 36.7; O2SAT 99; BMI 25.4
--- NOTE | 2025-03-09 10:41 | HMH.EDGENADL ---
Discharge Plan Disposition Patient Disposition: Home, Self-Care Condition: Good Prescriptions Prescriptions: New ondansetron 4 mg tablet,disintegrating 4 mg PO Q6H PRN (Reason: nausea and vomiting) 1 Days Qty: 14 0RF No Action Nexplanon 68 mg implant subdermal cephalexin 500 mg capsule 500 mg PO BID 10 Days Qty: 20 0RF uvvsvmwoybjzova-qylidsywn-OR [Bromfed DM] 2-30-10 mg/5 mL Syrup 5 ml PO Q6H PRN (Reason: Cough) Qty: 240 0RF ondansetron 4 mg Tablet,Disintegrating 4 mg PO Q8H PRN (Reason: Nausea) Qty: 12 0RF Referrals Follow up/Referrals: Provider,Referral, MD [Primary Care Provider, Medical] - See instructions Clinical Impressions Clinical Impression: Nausea & vomiting Instructions Patient Instructions: DI for Nausea -- Adult Print Language Print Language: Greenlandic Discharge ED Provider: Bhanu Hopper General Adult HPI General Chief complaint: Nausea/Vomiting/Diarrhea Stated complaint: Nausea for three days. Time Seen by Provider: 03/09/25 10:31 Mode of Arrival: Ambulatory Source of Information: Patient Description of Symptoms (Recalled from ER Triage Doc. by RN): patient states she has been nauseated for 3 days. she denies any abdominal pain History of Present Illness HPI narrative: This is a 24-year-old female patient, with no past medical history no daily medications, who is presented to the emergency department today for evaluation of nausea. Patient says she has been feeling nauseous for the last 3 days. She has not had any accompanying abdominal pain. She states that her mother is currently critically ill with heart disease and this is caused her to feel exceedingly anxious. She feels like her anxiety and her nausea have coincided in onset. She has not had any abdominal pain, she is currently on control and does not feel that she could be . She had 1 episode of vomiting 3 days ago that was nonbloody and nonbilious. She is not having any symptoms of constipation or diarrhea. She is not having associated headaches or photophobia. Related Data Home Medications ?Medication ?Instructions ?Recorded ?Confirmed etonogestrel 68 mg subdermal subdermal 06/09/23 06/09/23 implant (Nexplanon) Previous Rx's ?Medication ?Instructions ?Recorded cephalexin 500 mg capsule 500 mg PO BID 10 days #20 caps 10/25/23 xlawppgavymhudb-wohenfmddfhtkuq-GN 5 ml PO Q6H PRN Cough #240 mL 10/09/24 2 mg-30 mg-10 mg/5 mL oral syrup (Bromfed DM) ondansetron 4 mg disintegrating 4 mg PO Q8H PRN Nausea #12 tabs 10/09/24 tablet ondansetron 4 mg disintegrating 4 mg PO Q6H PRN nausea and 03/09/25 tablet vomiting 24 hours #14 tabs Allergies Allergy/AdvReac Type Severity Reaction Status Date / Time No Known Allergies Allergy Verified 06/09/23 14:39 [facility] Disclaimer: The information contained in this section may have been updated after the patient was seen, as this information can be updated by other users. 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 Suicide attempt TMJ (sprain of temporomandibular joint) Surgical History No history of previous surgery Family History Other Asthma Cancer Stroke Social History Smoking Status: Current every day smoker tobacco type: e-cigarettes alcohol intake: never substance use type: denies use current occupational status: employed Travel in the last 8 weeks?: None number of children: 0 do you feel safe at home: Yes victim of physical abuse: No victim of emotional abuse: No victim of sexual abuse: No Have you lived/traveled outside US in past 30 days?: No Contact w/someone who lives/traveled outside US past 30 days?: No Exposure to someone with infectious disease in past 14 days?: No Do you have a fever (greater than 100.4 F or 38 C)?: No Have you tested positive for COVID-19?: No Exposed to someone with COVID-19 in past 14 days?: No Do you have a sore throat?: No Do you have a cough?: No Do you have any weakness?: No Do you have any diarrhea?: No Are you experiencing any unusual bleeding?: No Do you have any muscle aches/pain?: No Do you have any abdominal pain?: No Are you experiencing loss of taste or smell?: No Other Medical History Have you received the Flu Vaccine for this season: No Have you received the Pneumonia Vaccine: No ROS Obtained: Yes Systems reviewed as appropriate & no additional complaints except as documented Physical Exam General General appearance: alert and in no apparent distress Head Head exam: atraumatic and normocephalic Eye Eye exam: Present PERRL and EOMI ENT ENT exam: Present normal oropharynx and mucous membranes moist Neck Neck exam: Present full ROM and trachea midline Respiratory Respiratory exam: Present normal lung sounds bilaterally; Absent respiratory distress Cardiovascular Cardiovascular exam: Present regular rate and normal rhythm Abdominal Exam Abdominal exam: Present soft; Absent tenderness Extremities Exam Extremities exam: Present normal inspection; Absent tenderness Back Exam Back exam: Absent vertebral tenderness Neurological Exam Neurological exam: Present alert and oriented X3 Skin Skin exam: Present warm and dry Medical Decision Making Medical Records Screening: Per USPSTF and CDC recommendations, given the prevalence of disease in our region, it is our hospital?s policy to screen for HIV and viral Hepatitis for all patients aged 18 and over and those with ongoing risk factors. Nadir Inquiry Pt receiving controlled substance: No Vital Signs: 03/09/25 10:28 03/09/25 10:29 03/09/25 11:39 Temperature 98.0 F Temperature Source Oral Pulse Rate 74 68 Pulse Rate [Right Radial] 85 Respiratory Rate 16 Blood Pressure 130/74 127/85 Blood Pressure [Right Arm] 130/74 Blood Pressure Mean [Right Arm] 92 Blood Pressure Source [Right Arm] Automatic Cuff Blood Pressure Position [Right Arm] Sitting 02 Sat by Pulse Oximetry 98 99 98 Oxygen Delivery Method Room Air Room Air Room Air Lab Data Lab results reviewed: Yes I reviewed the patient's lab results. Lab Results 03/09/25 10:27: Urine Color Yellow, Urine Appearance Clear, Urine pH 6.0, Ur Specific [place] >= 1.030, Urine Protein Negative, Urine Glucose (UA) Negative, Urine Ketones Negative, Urine Blood Negative, Urine Nitrate Negative, Urine Bilirubin Negative, Urine Urobilinogen 0.2, Ur Leukocyte Esterase Negative, Urine HCG, Qual Negative Orders (Tests/Meds): ED MEDICATIONS Discontinued Medications Generic Name Dose Route Start Last Admin Trade Name Maya PRN Reason Stop Dose Admin Diphenhydramine HCl 25 mg 03/09/25 10:38 03/09/25 10:50 Diphenhydramine 25mg Capsule PO 03/09/25 10:39 Not Given ONCE ONE Famotidine 20 mg 03/09/25 10:43 03/09/25 10:47 Famotidine 20mg Tablet PO 03/09/25 10:44 20 mg ONCE ONE Administration Prochlorperazine Maleate 10 mg 03/09/25 10:38 03/09/25 10:48 Prochlorperazine 10mg Tablet PO 03/09/25 10:39 10 mg ONCE ONE Administration ORDERS Category Date Time Status Urinalysis and Microscopic Stat Lab 03/09/25 10:27 Results Urine , HCG Qual. Stat Lab 03/09/25 10:27 Completed Medical Decision Narrative: In summary this is a 24-year-old female patient who is presenting to the emergency department today for nausea for the last 3 days with 1 episode of vomiting 3 days ago that was nonbloody nonbilious. The patient does not have any significant contributing comorbidities. On initial evaluation of the patient they were resting comfortably in no acute distress and nontoxic in appearance. They are hemodynamically stable, saturating well room air, and are neurologically intact. On examination of the patient she has no abdominal tenderness to palpation. Heart and lungs clear to auscultation bilaterally. Mucous membranes are moist. No lower extremity erythema or edema. Differential diagnosis includes nausea, anxiety, urinary tract infection, , acid reflux, others. Patient does not demonstrate any abdominal tenderness on exam to raise concern for cholecystitis or pancreatitis. I have offered to perform hematologic labs and administer IV medication to the patient and she would like to not pursue this at this time. I feel that this is reasonable given that her exam is relatively benign. We have initiated workup with a urinalysis and urine test. We will administer oral Compazine as well as oral Benadryl and oral Pepcid. Reassessment pending. After the medications above were administered I did reassess the patient and she states that her nausea has significantly improved. In the interim I have personally interpreted her laboratory results and they are is no evidence of urinary tract infection or . Given that her symptoms have improved we will discharge her home with a prescription for Zofran. At this time all questions have been answered and all parties are agreeable with this plan. Critical Care Critical Care Time Critical Care Time: No
[2025-03-09] MEDS: FAMOTIDINE 20MG TABLET 20 MG PO (10:47)
[2025-03-09] MEDS: PROCHLORPERAZINE 10MG TABLET 10 MG PO (10:48)
[2025-03-09 10:49] LABS: Microscopic, Urine URINE MICROSCOPIC (MICROSCOPIC)
[2025-03-09 11:00] LABS: Color,Urine YELLOW (Yellow); Glucose,Urine (UA) Negative (Negative); Ketones,Urine Negative (Negative); Leukocyte Esterase,Urine Negative (Negative); PH,Urine 6.0 (5.0-8.5); Protein,Urine Negative (Negative); Specific Gravity, Urine >= 1.030 (1.005-1.030); Urobilinogen,Urine 0.2 EU/dl (0.2)
[2025-03-09 11:02] LABS: Bilirubin,Urine Negative (Negative)
[2025-03-09 11:13] LABS: Urine Pregnancy, HCG Qual. Negative (Negative)
[2025-03-09 11:39] VITALS: BP 127/85; PULSE 68; O2SAT 98
[2025-03-09 12:15] VITALS: BP 129/70; PULSE 80; RESP 15; TEMP 36.9; O2SAT 99
[2025-03-09 12:59] LABS: Bacteria,Urine Trace /lpf; Squamous Epithelial Cell,Urine Occasional #/hpf (0-5); WBC,Urine Occasional #/hpf (0-3)
== END 2025-03-09 12:32 | disposition home or self-care (01) ==
PROVIDERS: Emergency Provider Student in an Organized Health Care Education/Training Program
DX: R11.2 Nausea with vomiting, unspecified (principal); F17.290 Nicotine dependence, other tobacco product, uncomplicated
CPT/HCPCS: 81001; 81025; 99283; Q0164

== ENCOUNTER 2025-08-30 12:51 | Emergency (ER) | payer MEDICAID, SELFPAY ==
--- NOTE | 2025-08-30 13:00 | PC.NURSE ---
per registration pt originally presented to the ED an hour ago but when she saw it was busy she chose to leave and return in an hour. This nurse offered her a chair location which she declined at first but then stated she was okay with so she could receive medication. I informed her that if it was possible to get her to a room where she could have a visitor i would but that it wasnt likely because of the acuity and volume right now. pt stated it wasnt ideal, but still agreeable. this nurse apologized for the inconvenience
[2025-08-30 13:02] VITALS: BP 119/74; PULSE 103; RESP 18; TEMP 36.6; O2SAT 98; BMI 27.3
[2025-08-30 13:05] VITALS: BP 112/72; PULSE 93; RESP 16; O2SAT 97
--- NOTE | 2025-08-30 13:07 | ED_ITS ---
<Statement entered by Asif Juárez MD - 08/31/25 15:00> Asif Juárez MD: I was consulted by the ROSE, and we discussed the complexity of the problems being addressed. I approve the treatment and management plan for this patient's care in the emergency department, thus performing a substantive portion of the medical decision making. Discharge Plan Disposition Patient Disposition: Eloped Chief Complaint: Nausea/Vomiting/Diarrhea Prescriptions Prescriptions: New Unisom (doxylamine) 25 mg tablet 12.5 mg PO TID PRN (Reason: nausea and vomiting) Qty: 14 0RF pyridoxine (vitamin B6) 25 mg tablet 25 mg PO DAILY Qty: 14 0RF nitrofurantoin monohyd/m-cryst [Macrobid] 100 mg capsule 100 mg PO Q12H 5 Days Qty: 10 0RF Rx Instructions: must administer with a meal/food No Action ondansetron HCl 4 mg tablet 4 mg PO Q8H PRN (Reason: nausea and vomiting) 3 Days Qty: 14 0RF ondansetron 4 mg tablet,disintegrating 4 mg PO Q6H Qty: 30 0RF Referrals Follow up/Referrals: Rajat Clemons MD [Primary Care Provider, [facility]] - See instructions Provider,ReferralMD [Referring, Medical] - See instructions Activity Restrictions/Add. Instructions Additional Instructions/Restrictions: You have been seen in the emergency room today and diagnosed with hyperemesis gravidarum, also notable for a UTI. You will be sent home with a prescription for Unisom to try to help with your nausea, can use Zofran as prescribed as well. You will also be sent home a prescription for Macrobid for your UTI. Please complete entire course of antibiotics. Please follow-up with your DIRECT[facility] Dr. Valencia in the next week. Clinical Impressions Clinical Impression: Acute cystitis during , Hyperemesis arising during Instructions Patient Instructions: Hyperemesis Gravidarum, Acute Cystitis Print Language Print Language: Slovenian Discharge ED Provider: Asif Juárez General Adult [facility] General Chief complaint: Nausea/Vomiting/Diarrhea Stated complaint: 7 weeks -vomiting Time Seen by Provider: 08/30/25 13:02 Mode of Arrival: Ambulatory Source of Information: Patient Description of Symptoms (Recalled from ER Triage Doc. by RN): Patient reports that she is and that she has been having vomiting for 2 weeks. States that she has been unable to keep anything down for the full two weeks. States she does have zofran but it is not working. History of Present Illness HPI narrative: Linda Vasquez is a 24-year-old female who presents emergency room today with complaints of nausea and vomiting. Patient states that she has been nauseous for the last 2 weeks. G2, P1, no issues with her prior . No vomiting today, but was vomiting yesterday. Has not been to her OB yet, believes she is about 7-1/2 to 8 weeks . Last menstrual period was about 8 weeks ago. No abdominal pain, cramping. No vaginal bleeding, no vaginal discharge. No dysuria or hematuria. Denies any fever, cough, chest pain, shortness of breath. No flulike symptoms noted. No known sick contacts. Please note that the above description of symptoms, and this electronic medical record under categorization of recalled from ER triage doctor by RN are reflective of an initial nursing assessment, however, is not reflective of my full history and physical exam that was personally taken and clarified. Consequentially, this proceeding description of symptoms, which may include the patient's cauterized chief complaint in the EMR, do not reflect my personal clinical impression, and the ultimate description of the history of present illness stated complaints should be deferred to this section of this note. Unless stated otherwise were congruent with the section of the note, additional signs, symptoms, or incongruence can be interpreted as in or accurate with my clinical impression. Related Data Previous Rx's ?Medication ?Instructions ?Recorded ondansetron HCl 4 mg tablet 4 mg PO Q8H PRN nausea and 08/19/25 vomiting 3 days #14 tabs ondansetron 4 mg disintegrating 4 mg PO Q6H #30 tabs 1 10/23/24 tablet doxylamine succinate 25 mg tablet 12.5 mg (1/2 x 25 mg ) PO TID PRN 08/30/25 (Unisom (doxylamine)) nausea and vomiting #14 tabs nitrofurantoin 100 mg PO Q12H 5 days #10 ca ps 08/30/25 monohydrate/macrocrystals 100 mg capsule (Macrobid) pyridoxine (vitamin B6) 25 mg 25 mg PO DAILY #14 tabs 08/30/25 tablet Allergies Allergy/AdvReac Type Severity Reaction Status Date / Time No Known Allergies Allergy Verified 05/08/25 09:31 [facility] Disclaimer: The information contained in this section may have been updated after the patient was seen, as this information can be updated by other users. Medical History Generalized anxiety disorder Pharyngitis Exercise-induced leg cramps complicated by previous recurrent miscarriages Asymptomatic bacteriuria during TMJ (sprain of temporomandibular joint) Concussion without loss of consciousness Depression Suicide attempt Overdose of trazodone Surgical History No history of previous surgery Family History Other Asthma Cancer Stroke Social History Smoking Status: Current every day smoker tobacco type: e-cigarettes alcohol intake: never substance use type: denies use current occupational status: employed Travel in the last 8 weeks?: None number of children: 0 do you feel safe at home: Yes victim of physical abuse: No victim of emotional abuse: No victim of sexual abuse: No Have you lived/traveled outside US in past 30 days?: No Contact w/someone who lives/traveled outside US past 30 days?: No Exposure to someone with infectious disease in past 14 days?: No Do you have a fever (greater than 100.4 F or 38 C)?: No Have you tested positive for COVID-19?: No Exposed to someone with COVID-19 in past 14 days?: No Do you have a sore throat?: No Do you have a cough?: No Do you have any weakness?: No Do you have any diarrhea?: No Are you experiencing any unusual bleeding?: No Do you have any muscle aches/pain?: No Do you have any abdominal pain?: No Are you experiencing loss of taste or smell?: No Other Medical History Have you received the Flu Vaccine for this season: No Have you received the Pneumonia Vaccine: No ROS Obtained: Yes All systems reviewed & no additional complaints except as documented Physical Exam General General appearance: alert and in no apparent distress Head Head exam: atraumatic, normocephalic and normal inspection Eye Eye exam: Present normal appearance, PERRL and EOMI ENT ENT exam: Present normal exam, normal oropharynx, mucous membranes moist, TM's normal bilaterally and normal external ear exam Neck Neck exam: Present normal inspection, full ROM and trachea midline; Absent meningismus or lymphadenopathy Chest Chest inspection: Present normal inspection and symmetric chest wall rise; Absent tenderness Respiratory Respiratory exam: Present normal lung sounds bilaterally; Absent respiratory distress Cardiovascular Cardiovascular exam: Present regular rate and normal rhythm; Absent JVD Abdominal Exam Abdominal exam: Present soft and normal bowel sounds; Absent distention, tenderness or guarding Extremities Exam Extremities exam: Present normal inspection, full ROM and normal capillary refill; Absent calf tenderness Back Exam Back exam: Present normal inspection; Absent tenderness Neurological Exam Neurological exam: Present alert and oriented X3 Psychiatric Psychiatric exam: Present normal affect and normal mood Skin Skin exam: Present warm, dry, intact and normal color Lymphatic Lymphatic Findings: no adenopathy Medical Decision Making Medical Records Screening: Per USPSTF and CDC recommendations, given the prevalence of disease in our region, it is our hospital?s policy to screen for HIV and viral Hepatitis for all patients aged 18 and over and those with ongoing risk factors. Nadir Inquiry Pt receiving controlled substance: No Vital Signs: 08/30/25 13:02 08/30/25 13:05 Temperature 97.9 F Temperature Source Oral Pulse Rate 93 H Pulse Rate [Radial] 103 H Respiratory Rate 18 16 Blood Pressure 112/72 Blood Pressure [Right Arm] 119/74 Blood Pressure Mean [Right Arm] 89 Blood Pressure Source Automatic Cuff Blood Pressure Source [Right Arm] Automatic Cuff Blood Pressure Position Sitting Blood Pressure Position [Right Arm] Sitting 02 Sat by Pulse Oximetry 98 97 Oxygen Delivery Method Room Air Room Air Lab Data Lab Results 08/30/25 14:35: Urine Color Yellow, Urine Appearance Sl cloudy, Urine pH 5.5, Ur Specific [place] >= 1.030, Urine Protein 1+ A, Urine Glucose (UA) Negative, Urine Ketones 3+, Urine Blood Trace-l, Urine Nitrate Negative, Urine Bilirubin Negative, Urine Urobilinogen 0.2, Ur Leukocyte Esterase Negative, Urine RBC 3-5, Urine WBC 5-10, Ur Squamous Epith Cells 5-10, Urine Bacteria 2+, Urine Mucus 3+ Orders (Tests/Meds): ED MEDICATIONS Discontinued Medications Generic Name Dose Route Start Last Admin Trade Name Freq PRN Reason Stop Dose Admin Doxylamine Succinate/Pyridoxine 1 tab 08/30/25 13:21 08/30/25 13:29 Doxylamine 10mg/Pyridoxine 10mg Tablet PO 08/30/25 13:22 1 tab ONCE ONE Administration ORDERS Category Date Time Status Urinalysis and Microscopic Stat Lab 08/30/25 14:35 Completed Urine Culture Stat Micro 08/30/25 14:35 Received Medical Decision Narrative: In summary patient is an 25-year-old female who presents emergency department for evaluation of nausea and vomiting for 2 weeks. Patient states she had a positive home test, has not been to the OB for an ultrasound. Reports that she has had nausea and intermittent vomiting for the last 2 weeks. No nausea today. No abdominal pain, no cramping, no vaginal discharge or bleeding. No known sick contacts. No fever. Patient is hemodynamically stable upon arrival, afebrile. Unremarkable nonfocal physical exam. Differential diagnosis includes ectopic , viral gastroenteritis. Initial workup will be conducted with urinalysis, POCUS. Initial interventions include Unisom and B6. Initial workup reviewed by me urinalysis with 2+ bacteria. Did have resolution with her nausea while here. Given this patient appropriate for discharge at this time. She will be prescribed a course of Macrobid for 5 days for acute cystitis during . She will also be sent home with Unisom with B6 in it. She should follow-up with her OB next week, follows with Dr. Valencia. When I went to explain the findings and discuss the need for antibiotics with this fails, she was not present in her room. She was out of the bathroom. Nursing staff could not find her. She essentially has eloped. We have tried contacting her 3 phone numbers on the chart to tell her about her antibiotic prescription that was called into her pharmacy for her UTI, as well as some antinausea medications that were called in. None of these numbers were working, unable to leave a voicemail. Critical Care Critical Care Time Critical Care Time: No
[2025-08-30] MEDS: DOXYLAMINE 10MG/PYRIDOXINE 10MG TABLET 1 TAB PO (13:29)
[2025-08-30 14:52] LABS: Microscopic, Urine URINE MICROSCOPIC (MICROSCOPIC)
[2025-08-30 14:54] LABS: Color,Urine YELLOW (Yellow); Glucose,Urine (UA) Negative (Negative); Ketones,Urine 3+ (Negative); Leukocyte Esterase,Urine Negative (Negative); PH,Urine 5.5 (5.0-8.5); Protein,Urine 1+ (Negative); Specific Gravity, Urine >= 1.030 (1.005-1.030); Urobilinogen,Urine 0.2 EU/dl (0.2)
[2025-08-30 14:56] LABS: Bilirubin,Urine Negative (Negative)
[2025-08-30 15:06] LABS: Bacteria,Urine 2+ /lpf; Mucus,Urine 3+ /lpf
[2025-08-30 15:20] VITALS: BP 00/00; PULSE 0; RESP 0; O2SAT 0
--- NOTE | 2025-08-30 15:20 | PC.NURSE ---
went to discharge patient and she was no longer in her chair. pt is presumed to have eloped. this nurse attempted to call pt number and emergency contact number as well as the number given by her OB office but all were no longer working number. Gela, associate sales manager stated the patient was coming in for an appointment next week and that she will inform her of her UTI if she has not returned before then.
== END 2025-08-30 15:21 | disposition left against medical advice (07) ==
PROVIDERS: Emergency Provider Student in an Organized Health Care Education/Training Program; PCP Nurse Practitioner Obstetrics & Gynecology
DX: O21.0 Mild hyperemesis gravidarum (principal); O23.41 Unspecified infection of urinary tract in pregnancy, first trimester; Z3A.01 Less than 8 weeks gestation of pregnancy
CPT/HCPCS: 81001; 87086; 99283; 99284